=== PATIENT | male | born 1950 | race Caucasian/White ===

== ENCOUNTER 2019-05-16 11:38 | Outpatient (CLI) | payer MEDICARE, OTHER, SELFPAY ==
--- NOTE | 2019-05-16 11:52 | XRR_ITS ---
PROCEDURE INFORMATION: Exam: XR Chest, 2 Views Exam date and time: 05/16/2019 12:05 PM Age: 68 years old Clinical indication: Cough; Prior surgery; Surgery date: 6+ months; Surgery type: Cabg; Additional info: Cough/hx of asbestosis TECHNIQUE: Imaging protocol: XR of the chest Views: 2 views. COMPARISON: No relevant prior studies available. FINDINGS: Lungs: Emphysema Mild scarring left lung base inferiorly and medially Lungs are well aerated without a focal area of consolidation. Pleural space: Pleural calcifications left hemithorax Heart/Mediastinum: Unremarkable. No cardiomegaly. Bones/joints: prior sternotomy. XR/XR chest 2V* [id number] IMPRESSION: Lungs are well aerated without a focal area of consolidation.
== END 2019-05-16 11:39 | disposition home or self-care (01) ==
LOC: RAD 11:47
PROVIDERS: Family Provider Family Medicine; PCP Family Medicine; Visit Provider Family Medicine
DX: R05 Cough (principal); Z95.1 Presence of aortocoronary bypass graft
CPT/HCPCS: 71046

== ENCOUNTER 2019-10-25 13:08 | Observation (INO) | payer MEDICARE, OTHER, SELFPAY ==
[2019-10-25] VITALS (52 sets, daily range): BP systolic 105–135; BP diastolic 58–76; PULSE 53–135; RESP 10–20; TEMP 36.7–36.8; O2SAT 95–98; BMI 32.6
--- NOTE | 2019-10-25 14:11 | ED_ITS ---
HPI - Arrhythmia/Palpitations General: Chief Complaint: Arrhythmia/Palpitations Stated Complaint: high hr/svt symptoms Time Seen by Provider: 10/25/19 13:40 History of Present Illness: HPI narrative: Patient has a long history of SVT. He began to have symptoms of the rapid heartbeat that he gets with SVT, last night. MD complaint: rapid heart beat and palpitations Onset (ago): hour(s) Duration: constant Severity: severe Context: occurred during rest Arrhythmia history: SVT Associated symptoms: Reports no associated symptoms Course Vital Signs: Vital signs: Vital Signs Temperature 98.0 F 10/25/19 13:16 Pulse Rate 130 H 10/25/19 14:56 Respiratory Rate 16 10/25/19 14:56 Blood Pressure 105/76 10/25/19 14:56 Pulse Oximetry 97 10/25/19 14:56 MDM - Arrhythmia/Palpitations Lab Data: Labs: Lab Results 10/25/19 10/25/19 10/25/19 Range/Units 14:05 14:05 14:05 WBC 7.0 (4.0-10.0) 10^3/ uL RBC 4.85 (4.1-5.3) 10^6/u L Hgb 14.0 (11.7-16.6) g/dL Hct 42.3 (42.0-52.0) % MCV 87.2 (80-94) fL MCH 28.9 (28.0-34.0) pg MCHC 33.1 (30.0-36.0) g/dL RDW 13.2 (12.1-15.1) % Plt Count 203 (130-400) 10^3/c mm MPV 10.9 H (7.4-10.4) fL Neut % (Auto) 65.4 % Lymph % (Auto) 18.5 % [place] % (Auto) 8.5 % Eos % (Auto) 6.6 % Baso % (Auto) 0.9 % Neut # (Auto) 4.6 (1.8-7.7) 10^3/u L Lymph # (Auto) 1.3 (0.8-4.8) 10^3/u L [place] # (Auto) 0.6 (0.2-0.9) 10^3/u L Eos # (Auto) 0.5 (0.0-0.8) 10^3/u L Baso # (Auto) 0.1 (0.0-0.1) 10^3/u L Nucleated RBC % (a uto) 0 % Nucleated RBCs # 0.0 /100WBC PT 13.30 (10.5-13.3) SECO NDS INR 0.98 (0.8-1.2) Sodium 137 (136-145) mmol/L Potassium 4.2 (3.5-5.1) mmol/L Chloride 101 (98-107) mmol/L Carbon Dioxide 26 (22-29) mmol/L Anion Gap 14.2 (5-19) BUN 7 L (8-23) mg/dL Creatinine 0.5 L (0.7-1.2) mg/dL GFR Calculation 164.4 H (90-130) mL/min Glucose 170 H (65-115) mg/dL Calculated Osmolal ity 284 L (285-295) mOsm/k g Calcium 9.8 (8.5-10.5) mg/dL Total Bilirubin 0.9 (0.15-1.2) mg/dL AST 14 (0-40) U/L ALT 11 (0-41) U/L Alkaline Phosphata se 79 (40-130) IU/L Troponin T Baselin e (0-15) ng/L NT-Pro-B Natriuret Pep 437 H (0-125) pg/mL Total Protein 7.2 (6.6-8.7) g/dL Albumin 4.4 (3.5-5.2) g/dL Globulin 2.8 (1.3-4.6) g/dL TSH 1.91 (0.27-4.20) uIU/ mL 10/25/19 Range/Units 14:05 WBC (4.0-10.0) 10^3/ uL RBC (4.1-5.3) 10^6/u L Hgb (11.7-16.6) g/dL Hct (42.0-52.0) % MCV (80-94) fL MCH (28.0-34.0) pg MCHC (30.0-36.0) g/dL RDW (12.1-15.1) % Plt Count (130-400) 10^3/c mm MPV (7.4-10.4) fL Neut % (Auto) % Lymph % (Auto) % [place] % (Auto) % Eos % (Auto) % Baso % (Auto) % Neut # (Auto) (1.8-7.7) 10^3/u L Lymph # (Auto) (0.8-4.8) 10^3/u L [place] # (Auto) (0.2-0.9) 10^3/u L Eos # (Auto) (0.0-0.8) 10^3/u L Baso # (Auto) (0.0-0.1) 10^3/u L Nucleated RBC % (a uto) % Nucleated RBCs # /100WBC PT (10.5-13.3) SECO NDS INR (0.8-1.2) Sodium (136-145) mmol/L Potassium (3.5-5.1) mmol/L Chloride (98-107) mmol/L Carbon Dioxide (22-29) mmol/L Anion Gap (5-19) BUN (8-23) mg/dL Creatinine (0.7-1.2) mg/dL GFR Calculation (90-130) mL/min Glucose (65-115) mg/dL Calculated Osmolal ity (285-295) mOsm/k g Calcium (8.5-10.5) mg/dL Total Bilirubin (0.15-1.2) mg/dL AST (0-40) U/L ALT (0-41) U/L Alkaline Phosphata se (40-130) IU/L Troponin T Baselin e 23 H (0-15) ng/L NT-Pro-B Natriuret Pep (0-125) pg/mL Total Protein (6.6-8.7) g/dL Albumin (3.5-5.2) g/dL Globulin (1.3-4.6) g/dL TSH (0.27-4.20) uIU/ mL Discharge Plan Discharge Patient Disposition: Admitted As Inpatient Clinical Impression: New onset atrial flutter Condition: Stable Referrals: Scot Calvillo MD [Primary Care Provider] - Coding Level of Care Code ED 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
--- NOTE | 2019-10-25 14:25 | XRR_ITS ---
PROCEDURE INFORMATION: Exam: XR Chest, 1 View Exam date and time: 10/25/2019 2:41 PM Age: 69 years old Clinical indication: Other: New onset afib, svt symptoms; Prior surgery; Surgery date: 6+ months; Surgery type: Bypass; Patient HX: New onset afib, high hr TECHNIQUE: Imaging protocol: XR of the chest Views: 1 view. COMPARISON: CR XR chest 2V* [id number] 05/16/2019 12:01 PM FINDINGS: Lungs: Unremarkable. No consolidation. Pleural space: Unremarkable. No pleural effusion. No pneumothorax. Heart/Mediastinum: Unremarkable. No cardiomegaly. Diaphragm: There is calcification along the left hemidiaphragm. Bones/joints: There has been a sternotomy. XR/XR chest 1V portable [id number] IMPRESSION: There are no acute concerning abnormalities.
--- NOTE | 2019-10-25 14:26 | ECG_ITS ---
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 Measurements Intervals [place] Rate: 131 P: 25 IN: 152 QRS: 81 QRSD: 95 T: 263 QT: 290 QTc: 429 Interpretive Statements SINUS TACHYCARDIA WITH OCCASIONAL VENTRICULAR PREMATURE COMPLEXES ST DEVIATION AND MODERATE T-WAVE ABNORMALITY, CONSIDER ANTEROLATERAL ISCHEMIA ST DEVIATION AND MODERATE T-WAVE ABNORMALITY, CONSIDER INFERIOR ISCHEMIA No previous ECG available for comparison Electronically Signed On 10-25-2019 21:15:28 CDT by Kacey Stephens M.D. [email or web address] [email or web address] [email or web address] Apps ([email or web address])/store/[id number] f
[2019-10-25 14:37] LABS: Basophils # 0.1 10^3/uL (0.0-0.1); Basophils % 0.9 %; Eosinophils # 0.5 10^3/uL (0.0-0.8); Eosinophils % 6.6 %; Hematocrit 42.3 % (42.0-52.0); Lymphocytes # 1.3 10^3/uL (0.8-4.8); Lymphocytes % 18.5 %; Mean Corpuscular HGB Conc 33.1 g/dL (30.0-36.0); Mean Corpuscular Hemoglobin 28.9 pg (28.0-34.0); Mean Corpuscular Volume 87.2 fL (80-94); Mean Platelet Volume 10.9 fL (7.4-10.4); Monocytes # 0.6 10^3/uL (0.2-0.9); Monocytes % 8.5 %; Neutrophils # 4.6 10^3/uL (1.8-7.7); Neutrophils % 65.4 %; Nucleated Red Blood Cells % 0 %; Platelet Count 203 10^3/cmm (130-400); Red Blood Count 4.85 10^6/uL (4.1-5.3); Red Cell Distribution Width 13.2 % (12.1-15.1)
[2019-10-25 14:52] LABS: Troponin(5th) Baseline 23 ng/L (0-15)
[2019-10-25 14:59] LABS: Alanine Aminotransferase 11 U/L (0-41); Albumin Level 4.4 g/dL (3.5-5.2); Alkaline Phosphatase 79 IU/L (40-130); Anion Gap 14.2 (5-19); Aspartate Amino Transferase 14 U/L (0-40); Blood Urea Nitrogen 7 mg/dL (8-23); Calcium 9.8 mg/dL (8.5-10.5); Carbon Dioxide 26 mmol/L (22-29); Chloride 101 mmol/L (98-107); Globulin 2.8 g/dL (1.3-4.6); Glomerular Filtration Rate 164.4 mL/min (90-130); Glucose 170 mg/dL (65-115); NT Pro B Type Natriuretic Pept 437 pg/mL (0-125); Osmolality Calculated 284 mOsm/kg (285-295); Potassium 4.2 mmol/L (3.5-5.1); Sodium 137 mmol/L (136-145); Thyroid Stimulating Hormone 1.91 uIU/mL (0.27-4.20); Total Bilirubin 0.9 mg/dL (0.15-1.2); Total Protein 7.2 g/dL (6.6-8.7)
--- NOTE | 2019-10-25 15:10 | PC.NURSE ---
pt converted to NSR at 1508 with 20mg IVP diltiazem. ED provider notified. Verbal orders received to hold off on starting diltiazem gtt
[2019-10-25 15:23] LABS: INR 0.98 (0.8-1.2)
--- NOTE | 2019-10-25 16:26 | ECG_ITS ---
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 Measurements Intervals [place] Rate: 63 P: 50 IA: 170 QRS: 75 QRSD: 92 T: 218 QT: 423 QTc: 434 Interpretive Statements SINUS RHYTHM ST DEVIATION AND MODERATE T-WAVE ABNORMALITY, CONSIDER LATERAL ISCHEMIA [-0.1+ mV T WAVE IN I/aVL/V5/V6] ST DEVIATION AND MODERATE T-WAVE ABNORMALITY, CONSIDER INFERIOR ISCHEMIA [-0.1+ mV T WAVE IN II/aVF] Compared to ECG 10/25/2019 14:56:37 Sinus tachycardia no longer present Ventricular premature complex(es) no longer present T-wave abnormality still present Possible ischemia still present Electronically Signed On 10-25-2019 20:53:31 CDT by Kacey Stephens M.D. [id number]
[2019-10-25 16:46] LABS: Troponin 5 2HR 25.43 ng/L (0-15); Troponin 5 2HR Delta 2.43 ABS# (0-10)
--- NOTE | 2019-10-25 18:42 | PM.HP ---
Providers/Chief Complaint Primary Care Provider: Scot Calvillo MD Chief Complaint: high hr/svt symptoms History of Present Illness Rufus Hernández is a 69 year old male with past medical history of diabetes mellitus type 2, CABG x 2, hypertension, hypothyroidism who presented to the emergency department with concerns for tachycardia. The patient noted that on the evening of 10/24/2019 his heart rate was going very fast. He has had this problem intermittently and once he starts having to the ER, it tends to self resolve. This time it continued through the night and by the morning of 10/25/2019, he decided to go to the ER for further evaluation. In the ER he was found to have tachycardia with rates into the 180s with atrial flutter. He was given a dose of Cardizem IV and with this, his heart rate converted to a normal sinus rhythm with a rate in the 60s. The patient denies any active chest pains, shortness of breath, nausea, vomiting, diarrhea, constipation, dysuria. Medications/Allergies Home Medications Medication Instructions Recorded Confirmed Last Taken Type aspirin 81 mg PO DAILY 10/25/19 10/25/19 10/25/19 History atorvastatin 40 mg PO DAILY 10/25/19 10/25/19 10/25/19 History cyanocobalamin (vitamin B-12) 1,000 mcg PO Q14D 10/25/19 10/25/19 10/17/19 History [Vitamin B-12] furosemide 20 mg PO DAILY PRN 10/25/19 10/25/19 Unknown History insulin glargine [Lantus Solostar 15 unit SUBCUT DAILY 10/25/19 10/25/19 10/24/19 History U-100 Insulin] insulin regular human [Novolin R See Rx Instructions .ROUTE .COMPLEX 10/25/19 10/25/19 10/25/19 History Regular U-100 Insuln] ipratropium bromide [Atrovent HFA] 1 puff INHALATION QID PRN 10/25/19 10/25/19 Unknown History lisinopril 20 mg PO DAILY 10/25/19 10/25/19 10/25/19 History methimazole 2.5 mg PO DAILY 10/25/19 10/25/19 10/25/19 History metoprolol succinate [Toprol XL] 50 mg PO DAILY 10/25/19 10/25/1920 History nitroglycerin [Nitrostat] 0.4 mg SUBLINGUAL Q5M PRN 10/25/19 10/25/19 Unknown History omeprazole 20 mg PO DAILY 10/25/19 10/25/19 10/25/19 History Allergies Allergy/AdvReac Type Severity Reaction Status Date / Time No Known Allergies Allergy Unverified 10/25/19 15:05 PFSH Acute PFSH: Medical History Non-smoker Surgical History (Updated 10/25/19 @ 18:57 by Scot Calvillo MD) History of tonsillectomy S/P CABG x 2 Family History (Updated 10/25/19 @ 18:57 by Scot Calvillo MD) Father CAD (coronary artery disease) Social History (Updated 10/25/19 @ 18:58 by Scot Calvillo MD) Alcohol intake: current Alcohol intake frequency: few times a month Vitals/I&O/Wt Last Vital Signs Temp 98.0 F 10/25/19 13:16 Pulse 64 10/25/19 18:17 Resp 19 H 10/25/19 18:17 BP 135/69 10/25/19 18:17 Pulse Ox 97 10/25/19 18:17 Weight last 48 hrs Weight 241 lb Physical Exam Narrative: EXAM NARRATIVE: General: Alert and oriented x3 Eyes: PERRLA, EOMI Mouth: Mucous membranes moist without lesions Cardiac: Regular rate and rhythm without murmurs, mild bradycardia Lungs: Clear to auscultation bilaterally without wheezes, crackles or rhonchi Abdomen: Soft, nontender, no hepatosplenomegaly noted Extremities: Trace edema in the bilateral lower extremities Data : 10/25/19 14:05 10/25/19 14:05 A&P Additional A&P Information 1. New onset atrial flutter with RVR -the patient has new onset atrial flutter with RVR. He has had multiple episodes of tachycardia that were not previously discovered on EKG or event monitor. He is likely having paroxysmal atrial flutter. This did resolve with Cardizem IV. We will try changing the patient to Cardizem p.o. and plan to stop metoprolol. We will start with 120 mg extended release and increase if needed. We will have to watch the blood pressure to be sure it does not drop too much. We will plan to decrease the lisinopril to allow for this. The patient may need to follow-up with his sequins stringer, Dr. Harrington, in [place] as an outpatient. I talked with the patient regarding blood thinners and he does not want to start any at this time. We will get an echocardiogram and follow. 2. Coronary artery disease -stable at this time. Troponins are not showing signs of acute PA. 3. Diabetes mellitus type 2 -we will get an A1c and continue with long-acting insulin at 15 units/day. Sliding scale as well. 4. Hypertension -blood pressures little bit on the soft side. We will decrease lisinopril dose and switch over to Cardizem and follow. 5. Hypothyroidism/Graves' disease -the patient plans to have an ablation therapy done at the end of this month. We will backorder a T4 to see if hypothyroidism may be inducing his atrial flutter. 6. Prophylaxis -Lovenox Attestations Medical Necessity Statement*: The patient is currently here for observation and we will follow to see if his heart rate stays under control. If it does not, we may need to change his status. 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
--- NOTE | 2019-10-25 19:07 | PC.NURSE ---
Patient report received from KYREE Staples and care transferred to KYREE Benson
--- NOTE | 2019-10-25 19:34 | PC.NURSE ---
Tried to call report on patient but receiving nurse unable to take report at this time and will call back
--- NOTE | 2019-10-25 20:26 | ECG_ITS ---
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 Measurements Intervals [place] Rate: 55 P: 54 NE: 168 QRS: 72 QRSD: 97 T: 204 QT: 467 QTc: 448 Interpretive Statements SINUS BRADYCARDIA ST DEVIATION AND MODERATE T-WAVE ABNORMALITY, CONSIDER LATERAL ISCHEMIA [-0.1+ mV T WAVE IN I/aVL/V5/V6] ST DEVIATION AND MODERATE T-WAVE ABNORMALITY, CONSIDER INFERIOR ISCHEMIA [-0.1+ mV T WAVE IN II/aVF] Compared to ECG 10/25/2019 16:41:28 Sinus rhythm no longer present T-wave abnormality still present Possible ischemia still present Electronically Signed On 10-26-2019 7:27:26 CDT by Chuck Barth M.D. [id number]
[2019-10-25] MEDS: enoxaparin 40 mg/0.4 mL Syringe SUBCUT (20:34)
[2019-10-25] MEDS: atorvastatin 40 mg Tablet PO (20:34)
[2019-10-25 20:55] LABS: Troponin 5 6HR 27.62 ng/L (0-15); Troponin 5 6HR Delta 4.62 ng/L (0-12)
[2019-10-25 21:03] LABS: Free T4 Free Thyroxine 1.36 ng/dL (0.82-1.77)
[2019-10-26] VITALS (57 sets, daily range): BP systolic 100–142; BP diastolic 55–68; PULSE 52–63; RESP 10–22; TEMP 36.2–37; O2SAT 96–97
[2019-10-26 04:28] LABS: Basophils # 0.1 10^3/uL (0.0-0.1); Basophils % 0.8 %; Eosinophils # 0.6 10^3/uL (0.0-0.8); Eosinophils % 8.9 %; Hematocrit 39.3 % (42.0-52.0); Hemoglobin 12.9 g/dL (11.7-16.6); Lymphocytes % 32.4 %; Mean Corpuscular HGB Conc 32.8 g/dL (30.0-36.0); Mean Corpuscular Hemoglobin 29.7 pg (28.0-34.0); Mean Corpuscular Volume 90.6 fL (80-94); Mean Platelet Volume 11.1 fL (7.4-10.4); Monocytes # 0.6 10^3/uL (0.2-0.9); Monocytes % 9.6 %; Nucleated Red Blood Cells % 0 %; Platelet Count 181 10^3/cmm (130-400); Red Blood Count 4.34 10^6/uL (4.1-5.3); Red Cell Distribution Width 13.7 % (12.1-15.1); White Blood Count 6.2 10^3/uL (4.0-10.0)
[2019-10-26 04:50] LABS: Estmated Average Glucose 166; Hemoglobin A1C 7.4 % (4.0-6.0)
[2019-10-26 05:01] LABS: Alanine Aminotransferase 11 U/L (0-41); Albumin Level 3.8 g/dL (3.5-5.2); Alkaline Phosphatase 68 IU/L (40-130); Anion Gap 15.9 (5-19); Aspartate Amino Transferase 14 U/L (0-40); Blood Urea Nitrogen 8 mg/dL (8-23); Calcium 9.2 mg/dL (8.5-10.5); Carbon Dioxide 27 mmol/L (22-29); Chloride 101 mmol/L (98-107); Glomerular Filtration Rate 164.4 mL/min (90-130); Glucose 115 mg/dL (65-115); Magnesium 2.1 mg/dL (1.7-2.3); Osmolality Calculated 287 mOsm/kg (285-295); Phosphorus 3.5 mg/dL (2.5-4.5); Potassium 3.9 mmol/L (3.5-5.1); Sodium 140 mmol/L (136-145); Total Bilirubin 1.4 mg/dL (0.15-1.2); Total Protein 6.8 g/dL (6.6-8.7)
[2019-10-26 05:37] LABS: Chol HDL Ratio 4.03 mg/dL (1.0-5.00); Cholesterol 129 mg/dL (0-200); HDL Cholesterol 32 mg/dL (60-100); LDL Cholesterol Calculated 76 mg/dL (50-129); LDL HDL Ratio 2.38 RATIO (0.00-3.22); NT Pro B Type Natriuretic Pept 176 pg/mL (0-125); Triglycerides 104 mg/dL (0-150)
[2019-10-26] MEDS: aspirin 81 mg Chew Tablet PO (08:30)
[2019-10-26] MEDS: lisinopril 5 mg Tablet PO (08:30)
[2019-10-26] MEDS: pantoprazole DR 40 mg Tablet PO (08:30)
[2019-10-26] MEDS: methIMAzole 5 MG Tablet 2.5 MG PO (08:30)
[2019-10-26] MEDS: insulin glargine 100 units/1 mL 15 UNIT SUBCUT (09:18)
--- NOTE | 2019-10-26 11:23 | P.DS_ITS ---
Discharge Providers Date of Admission: 10/25/19 16:01 Date of Discharge: October 26, 2019 Attending Provider at Admission: Scot Calvillo MD Attending Provider at Discharge: Scot Calvillo MD Primary Care Provider: Scot Calvillo MD Diagnoses at Discharge Discharge Diagnosis (1) Diabetes mellitus: Status: Acute (2) Hyperthyroidism: Status: Acute (3) Hypertension: Status: Acute (4) Coronary artery disease: Status: Acute (5) New onset atrial flutter: Status: Acute Reason for Visit Reason for Visit: high hr/svt symptoms Hospital Course Hospital Course: The patient presented to the emergency department with concerns for tachycardia. The patient noted that on the evening of 10/24/2019 his heart rate was going very fast. He has had this problem intermittently and once he starts having to the ER, it tends to self resolve. This time it continued through the night and by the morning of 10/25/2019, he decided to go to the ER for further evaluation. In the ER he was found to have tachycardia with rates into the 180s with atrial flutter. He was given a dose of Cardizem IV and with this, his heart rate converted to a normal sinus rhythm with a rate in the 60s. The patient denied any active chest pains, shortness of breath, nausea, vomiting, diarrhea, constipation, dysuria. The patient felt that the metoprolol was not working well for him and wished to try to switch to Cardizem instead. I started him on Cardizem 120 mg extended release and he received 1 dose on the evening of 10/25/2019. The patient's pulse stayed in the 50s to 60s and he did not have any runs of tachycardia. The patient's blood pressure also gradually improved and has been in the 130s and 140s systolic at the time of discharge. The patient feels well and denies any chest pains. We will plan to continue with the Cardizem as an outpatient and stop the metoprolol for now. We will certainly need to watch as an outpatient to make sure that this dose does not need to be adjusted. The patient's blood pressure was on the upper limits of normal and he may need to have his lisinopril increased as an outpatient. He is to check his blood pressure at home and let me know if increasing. We will follow-up over the next week. The patient will also plan to follow-up with his valve fitter in [place], Dr. Falk. All questions were answered. The patient is in agreement with discharge home at this time. Physical Exam Narrative: EXAM NARRATIVE: General: Alert and oriented x3 Mouth: Mucous membranes moist without lesions Cardiac: Regular rate and rhythm without murmurs, mild bradycardia Lungs: Clear to auscultation bilaterally without wheezes, crackles or rhonchi Abdomen: Soft, nontender, no hepatosplenomegaly noted Extremities: Trace edema in the bilateral lower extremities Discharge Data Data Completed and Pending: Completed Studies During Hospitalization Category Date Time Status XR chest 1V jhoan ble [id number] Urgent Exams 10/25/19 14:25 Completed Pending at discharge Category Date Time Status Complete Blood Co unt w/Auto AM LABS Lab 10/27/19 04:00 Ordered Complete Blood Co unt w/Auto AM LABS Lab 10/28/19 04:00 Ordered CV carotid duplex BI* [id number] Urgent Ultrasound 10/26/19 19:02 Taken CV echo complete* [id number] Urgent Ultrasound 10/26/19 19:02 Taken Labs from last 24 hours 10/26/19 10/26/19 10/26/19 03:11 03:11 03:11 WBC RBC Hgb Hct MCV MCH MCHC RDW Plt Count MPV Neut % (Auto) Lymph % (Auto) [place] % (Auto) Eos % (Auto) Baso % (Auto) Neut # (Auto) Lymph # (Auto) [place] # (Auto) Eos # (Auto) Baso # (Auto) Nucleated RBC % (a uto) Nucleated RBCs # PT INR Sodium 140 Potassium 3.9 Chloride 101 Carbon Dioxide 27 Anion Gap 15.9 BUN 8 Creatinine 0.5 L GFR Calculation 164.4 H Glucose 115 Estimat Average Gl ucose 166 Hemoglobin A1c 7.4 H Calculated Osmolal ity 287 Calcium 9.2 Phosphorus 3.5 Magnesium 2.1 Total Bilirubin 1.4 H AST 14 ALT 11 Alkaline Phosphata se 68 Troponin I 6 Hour Troponin I Hi Sens Del Troponin T Baselin e Troponin T 120 Min [place] Troponin T NT-Pro-B Natriuret Pep 176 H Total Protein 6.8 Albumin 3.8 Globulin 3.0 Triglycerides 104 Cholesterol 129 LDL Cholesterol, C alc 76 HDL Cholesterol 32 L LDL/HDL Ratio 2.38 Cholesterol/HDL Ra laverne 4.03 TSH Free T4 07/07/1210/25/19 10/25/19 03:11 20:30 20:30 WBC 6.2 RBC 4.34 Hgb 12.9 Hct 39.3 L MCV 90.6 MCH 29.7 MCHC 32.8 RDW 13.7 Plt Count 181 MPV 11.1 H Neut % (Auto) 48.0 Lymph % (Auto) 32.4 [place] % (Auto) 9.6 Eos % (Auto) 8.9 Baso % (Auto) 0.8 Neut # (Auto) 3.0 Lymph # (Auto) 2.0 [place] # (Auto) 0.6 Eos # (Auto) 0.6 Baso # (Auto) 0.1 Nucleated RBC % (a uto) 0 Nucleated RBCs # 0.0 PT INR Sodium Potassium Chloride Carbon Dioxide Anion Gap BUN Creatinine GFR Calculation Glucose Estimat Average Gl ucose Hemoglobin A1c Calculated Osmolal ity Calcium Phosphorus Magnesium Total Bilirubin AST ALT Alkaline Phosphata se Troponin I 6 Hour 27.62 H Troponin I Hi Sens Del 4.62 Troponin T Baselin e Troponin T 120 Min [place] Troponin T NT-Pro-B Natriuret Pep Total Protein Albumin Globulin Triglycerides Cholesterol LDL Cholesterol, C alc HDL Cholesterol LDL/HDL Ratio Cholesterol/HDL Ra laverne TSH Free T4 1.36 10/25/19 10/25/19 10/25/19 16:12 14:05 14:05 WBC RBC Hgb Hct MCV MCH MCHC RDW Plt Count MPV Neut % (Auto) Lymph % (Auto) [place] % (Auto) Eos % (Auto) Baso % (Auto) Neut # (Auto) Lymph # (Auto) [place] # (Auto) Eos # (Auto) Baso # (Auto) Nucleated RBC % (a uto) Nucleated RBCs # PT INR Sodium 137 Potassium 4.2 Chloride 101 Carbon Dioxide 26 Anion Gap 14.2 BUN 7 L Creatinine 0.5 L GFR Calculation 164.4 H Glucose 170 H Estimat Average Gl ucose Hemoglobin A1c Calculated Osmolal ity 284 L Calcium 9.8 Phosphorus Magnesium Total Bilirubin 0.9 AST 14 ALT 11 Alkaline Phosphata se 79 Troponin I 6 Hour Troponin I Hi Sens Del Troponin T Baselin e 23 H Troponin T 120 Min [place] 25.43 H Delta Troponin T 2.43 NT-Pro-B Natriuret Pep 437 H Total Protein 7.2 Albumin 4.4 Globulin 2.8 Triglycerides Cholesterol LDL Cholesterol, C alc HDL Cholesterol LDL/HDL Ratio Cholesterol/HDL Ra laverne TSH 1.91 Free T4 10/25/19 10/25/19 14:05 14:05 WBC 7.0 RBC 4.85 Hgb 14.0 Hct 42.3 MCV 87.2 MCH 28.9 MCHC 33.1 RDW 13.2 Plt Count 203 MPV 10.9 H Neut % (Auto) 65.4 Lymph % (Auto) 18.5 [place] % (Auto) 8.5 Eos % (Auto) 6.6 Baso % (Auto) 0.9 Neut # (Auto) 4.6 Lymph # (Auto) 1.3 [place] # (Auto) 0.6 Eos # (Auto) 0.5 Baso # (Auto) 0.1 Nucleated RBC % (a uto) 0 Nucleated RBCs # 0.0 PT 13.30 INR 0.98 Sodium Potassium Chloride Carbon Dioxide Anion Gap BUN Creatinine GFR Calculation Glucose Estimat Average Gl ucose Hemoglobin A1c Calculated Osmolal ity Calcium Phosphorus Magnesium Total Bilirubin AST ALT Alkaline Phosphata se Troponin I 6 Hour Troponin I Hi Sens Del Troponin T Baselin e Troponin T 120 Min [place] Troponin T NT-Pro-B Natriuret Pep Total Protein Albumin Globulin Triglycerides Cholesterol LDL Cholesterol, C alc HDL Cholesterol LDL/HDL Ratio Cholesterol/HDL Ra laverne TSH Free T4 Vitals: Last Vital Signs Temp 98.1 F 10/26/19 08:00 Pulse 63 10/26/19 08:00 Resp 15 10/26/19 08:00 BP 142/68 10/26/19 08:00 Pulse Ox 96 10/26/19 08:00 Discharge Plan Discharge Patient Disposition: Home, Self-Care Condition: Stable Prescriptions: New diltiazem HCl 120 mg capsule,extended release 24 hr 120 mg PO DAILY Qty: 30 RF: 0 Continued atorvastatin 40 mg tablet 40 mg PO DAILY RF: 0 lisinopril 20 mg Tablet 20 mg PO DAILY RF: 0 Vitamin B-12 1,000 mcg Tablet 1,000 mcg PO Q14D RF: 0 Novolin R Regular U-100 Insuln 100 unit/mL solution See Rx Instructions .ROUTE .COMPLEX RF: 0 Nitrostat 0.4 mg Tablet, Sublingual 0.4 mg SUBLINGUAL Q5M PRN (Reason: Chest Pain) RF: 0 methimazole 5 mg tablet 2.5 mg PO DAILY RF: 0 omeprazole 20 mg capsule,delayed release(DR/EC) 20 mg PO DAILY RF: 0 aspirin 81 mg Tablet,Chewable 81 mg PO DAILY RF: 0 furosemide 20 mg tablet 20 mg PO DAILY PRN (Reason: swelling) RF: 0 Atrovent HFA 17 mcg/actuation Hfa Aerosol Inhaler 1 puff INHALATION QID PRN (Reason: Shortness Of Breath) RF: 0 Lantus Solostar U-100 Insulin 100 unit/mL (3 mL) insulin pen 15 unit SUBCUT DAILY RF: 0 Discontinued Toprol XL 50 mg tablet extended release 24 hr 50 mg PO DAILY RF: 0 Discharge Orders: Discharge Order (Routine); Ordered 10/26/19 Ordered By: Scot Calvillo Referrals: Scot Calvillo MD [Primary Care Provider] - 4-7 days (Please call [facility] for an appointment. Call [phone] for an appointment.) Discharge Diet: Cardiac and Diabetic Discharge Activity: Limit activity as instructed Activity Restrictions/Additional Instructions: Keep her overall activity level low for the next few days, then gradually increase. Discharge Attestations Time Spent in Discharge Care*: greater than 30 min Quality Metrics Clinical Quality Measures During this hospital stay, did patient experience: None Coding Level of Care Code Acute Army Manager for g Fwd Diagnoses Diabetes mellitus E11.9 Hyperthyroidism E05.90 Hypertension I10 Coronary artery disease I25.10 New onset atrial flutter I48.92
[2019-10-26 12:54] LABS: Glucose Point of Care 153 mg/dL (70-110)
--- NOTE | 2019-10-26 13:28 | PC.NURSE ---
DISCHARGE INSTRUCTIONS REVIEWED WITH PATIENT; CALLED PRESCRIPTION INTO [facility] [place] IT WAS TRANSMITTED TO [facility] (EVEN THOUGH IT WASN'T THE PREFERRED PHARMACY OR MARKED PREFERRED PHARMACY); MEDICATION LEAFLET GIVEN TO PATIENT ON PRESCRIPTION CALLED IN; IV REMOVED; PT DRESSED AND WALK OUT ON HIS ACCORD;
--- NOTE | 2019-10-26 19:02 | USCV_ITS ---
Rufus Hernández Age: 69 Gender: M : 1950 Exam Date: 10/26/2019 06:19 Ordering Phys: Scot Calvillo MD Technologist: Alex Gandhi Exam Location: [facility] [place] Indication: CVA BP: 111 / 58 HR: 59 Rhythm: Sinus Technical Quality: Adequate MEASUREMENTS (Male / Female) Normal Values 2D ECHO LV Diastolic Diameter PLAX 3.2 cm 4.2 - 5.9 / 3.9 - 5.3 cm LV Systolic Diameter PLAX 2.0 cm IVS Diastolic Thickness 1.0 cm 0.6 - 1.0 / 0.6 - 0.9 cm IVS Systolic Thickness 1.3 cm LVPW Diastolic Thickness 1.2 cm 0.6 - 1.0 / 0.6 - 0.9 cm LVPW Systolic Thickness 1.5 cm LVOT Diameter 2.0 cm LV Ejection Fraction 2D Teich 67.5 % LV Ejection Fraction MOD 2C 66.4 % LV Ejection Fraction 2C AL 66.5 % LA Diameter 4.4 cm LA Width 4.1 cm LA Height 5.2 cm RA Width 4.3 cm RA Height 4.5 cm M-MODE LV Diastolic Diameter MM 5.7 cm 4.2 - 5.9 / 3.9 - 5.3 cm LV Systolic Diameter MM 3.6 cm LV Ejection Fraction MM Teich 65.7 % IVS Diastolic Thickness MM 0.9 cm 0.6 - 1.0 / 0.6 - 0.9 cm IVS Systolic Thickness MM 1.4 cm LVPW Diastolic Thickness MM 1.1 cm 0.6 - 1.0 / 0.6 - 0.9 cm LVPW Systolic Thickness MM 1.9 cm RV Diastolic Diameter MM 1.6 cm Aortic Annulus Diameter 3.7 cm LA Ao Ratio MM 1.2 MV E Point Septal Separation 1.6 cm DOPPLER AV Peak Velocity 126.0 cm/s LVOT Peak Velocity 99.0 cm/s AV Area Cont Eq vti 2.9 cm squared AV Area Cont Eq pk 2.5 cm squared MV Area PHT 5.0 cm squared Mitral E to A Ratio 1.2 MV E' Velocity 7.0 cm/s Mitral E to MV E' Ratio 13.4 Mitral E to LV E' Lateral Ratio 12.2 Mitral E to LV E' Septal Ratio 15.1 TR Peak Velocity 153.0 cm/s TR Peak Gradient 9.4 mmHg Right Atrial Pressure 5.0 mmHg Pulmonary Artery Systolic Pressu 14.4 mmHg FINDINGS Left Ventricle Possibly normal LV size ejection fraction around 55%. The basal septum appears to be somewhat hypokinetic. Segmental wall motion analysis difficult because of the poor ultrasonic window.mild left ventricular hypertrophy. Grade II/IV diastolic dysfunction, moderately elevated filling pressures. Right Ventricle Possibly of normal size. Could not be visualized well Right Atrium Possibly of normal size. Could not visualized well. Left Atrium Mildly dilated Mitral Valve Thickened mitral valve. Aortic Valve Thickened aortic valve. Tricuspid Valve Could not be visualized well Pulmonic Valve Could not be visualized well Pericardium No pericardial effusion. Aorta Normal aortic annulus size. CONCLUSIONS Possibly normal LV size ejection fraction around 55%. The basal septum appears to be somewhat hypokinetic. Segmental wall motion analysis difficult because of the poor ultrasonic window. Mild left ventricular hypertrophy. Grade II/IV diastolic dysfunction, moderately elevated filling pressures. Mildly dilated Thickened aortic and mitral valves. No significant stenotic or regurgitant lesions. Because of the poor Doppler signals, this could be overlooked There is no pericardial effusion. No previous study is available for comparison. Dr Jolene Cedillo MD [facility] (Electronically Signed) Final Date: 26 October 2019 11:57 S
--- NOTE | 2019-10-26 19:02 | USCV_ITS ---
Rufus Hernández Age: 69 Gender: M : 1950 Exam Date: 10/26/2019 06:40 Ordering Phys: Scot Calvillo MD Technologist: Alex Gandhi Exam Location: [facility] [place] Indication: CVA Risk Factors: Previous Vascular Surgery: Right Brachial BP: / Left Brachial BP: / Right Left Velocity (cm/s) Spectral Plaque Velocity (cm/s) Spectral Plaque Syst/Diast Broadening Syst/Diast Broadening 68.40/ 17.60 Prox CCA 113.10/ 17.10 57.50/ 9.30 Mid CCA 93.30 / 14.50 52.80/ 17.10 Distal CCA 97.30 / 15.80 106.80/12.80 Hetro Prox ICA 137.85/ 33.00 Hetro 79.50/ 17.10 Hetro Mid ICA 122.20/ 34.70 Hetro 90.60/ 18.80 Hetro Distal ICA 149.45/ 33.85 Homo 77.70 ECA 173.40 1.56 ICA/CCA 1.46 Antegrade Vertebral Antegrade 55.50/ 11.10 cm/s 62.80/ 14.30 cm/s Bi Subclavian Tri 59.80 115.4 0 FINDINGS Moderate to heavy heterogeneous plaques at the left bifurcation and proximal internal carotid artery Mild to moderate diffuse plaques at the right bifurcation and internal carotid artery. Intimal thickening in the common carotid arteries bilaterally. Antegrade flow in the vertebral arteries bilaterally. CONCLUSIONS Moderate to heavy heterogeneous plaques at the left bifurcation and proximal internal carotid artery with velocity elevation consistent with 50-79% stenosis. Mild to moderate diffuse plaques at the right bifurcation and internal carotid artery with velocity elevation consistent with 16-49% stenosis. No similar previous studies are available for comparison Dr Jolene Cedillo MD [facility] (Electronically Signed) Final Date: 26 October 2019 12:02 S
== END 2019-10-26 13:20 | disposition home or self-care (01) ==
LOC: ER 15:47 → ICU 21:51
PROVIDERS: Admitting Provider Family Medicine; Emergency Provider Family Medicine; PCP Family Medicine; Visit Provider Family Medicine
DX: I65.23 Occlusion and stenosis of bilateral carotid arteries (principal); I48.92 Unspecified atrial flutter; E11.9 Type 2 diabetes mellitus without complications; E03.9 Hypothyroidism, unspecified; I10 Essential (primary) hypertension; I25.10 Atherosclerotic heart disease of native coronary artery without angina pectoris; Z79.4 Long term (current) use of insulin; Z79.82 Long term (current) use of aspirin; Z95.1 Presence of aortocoronary bypass graft
CPT/HCPCS: 12345; 36415; 36416; 71045; 80053; 80061; 82962; 83036; 83735; 83880; 84100; 84439; 84443; 84484; 85025; 85610; 93005; 93306; 93880; 96372; 99283; G0378; J1650; J1815; J3490

== ENCOUNTER 2020-04-21 10:23 | Outpatient (CLI) | payer MEDICARE, OTHER, SELFPAY ==
--- NOTE | 2020-04-21 10:33 | XRR_ITS ---
PROCEDURE INFORMATION: Exam: XR Lumbosacral Spine, 2 or 3 Views Exam date and time: 04/21/2020 11:25 AM Age: 69 years old Clinical indication: Patient HX: C/O low back pain x 4 days TECHNIQUE: Imaging protocol: XR of the lumbosacral spine, 2 or 3 views. COMPARISON: No relevant prior studies available. FINDINGS: Bones/joints: Mild degenerative disease is present predominantly at L5-S1 level with disc space narrowing and sclerosis. No fracture or other acute abnormalities are seen. There is no malalignment. Soft tissues: Unremarkable. Other findings: Incidentally noted is diaphragmatic calcification. XR/XR lumbar spine 2-3V* [id number] IMPRESSION: Mild DJD predominantly at L5-S1.
--- NOTE | 2020-04-21 10:33 | USCV_ITS ---
Rufus Hernández Age: 69 Gender: M : 1950 Exam Date: 04/21/2020 10:46 Ordering Phys: Scot Calvillo MD Technologist: Lori Clancy Exam Location: [facility] [place] Indication: INTERMITTENT CLAUDICATION Risk Factors: Previous Vascular Surgery: RIGHT LEFT BP: 146.0 / 68.00 BP: 133.0/ 66.00 0 0 Waveform Velocity (cm/s) Velocity (cm/s) Waveform Biphasic 108.5 Iliac Prox Biphasic 85.0 Iliac Mid Biphasic 120.9 Iliac Distal Biphasic 109.1 MISSILE AND MISSILE CHECKOUT TECHNICIAN Biphasic 85.4 SFA Prox Biphasic 96.0 SFA Mid Biphasic 76.9 SFA Dist Biphasic 59.8 POP Biphasic 94.1 ESTHETICIAN/OWNER Biphasic 22.0 DPA 1.2 EVA FINDINGS RT ESTHETICIAN/OWNER 176 RT DPA 139 Normal resting EVA on the right side, 1.2. Normal arterial Doppler flow velocities Slightly abnormal arterial Doppler waveforms CONCLUSIONS Features of arterial sclerosis with no significant arterial obstruction, based on the above findings. Dr Jolene Cedillo MD [facility] (Electronically Signed) Final Date: 22 April 2020 09:31 S
== END 2020-04-21 10:24 | disposition home or self-care (01) ==
PROVIDERS: PCP Family Medicine; Visit Provider Family Medicine
DX: I73.9 Peripheral vascular disease, unspecified (principal); M54.5 Low back pain; M51.37 Other intervertebral disc degeneration, lumbosacral region; M48.07 Spinal stenosis, lumbosacral region
CPT/HCPCS: 72100; 93926

== ENCOUNTER 2021-01-18 22:56 | Emergency (ER) | payer MEDICARE, OTHER, SELFPAY ==
--- NOTE | 2021-01-18 22:59 | XRR_ITS ---
PROCEDURE INFORMATION: Exam: XR Chest Exam date and time: 01/18/2021 10:59 PM Age: 70 years old Clinical indication: Shortness of breath; Prior surgery; Surgery date: 6+ months; Surgery type: Cabg; Patient HX: SOB x 3-4 days w covid exposure; Additional info: Cough, covid exposure TECHNIQUE: Imaging protocol: XR of the chest. Views: 1 view. COMPARISON: CR XR chest 1V portable [id number] 10/25/2019 2:48 PM FINDINGS: Lungs: Right mid lung and left lower lobe airspace opacities may reflect an infectious process, CT could better characterize these, especially the right lobe airspace opacities which has somewhat of a more focal rounded masslike appearance. Pleural spaces: Unremarkable. No pleural effusion. No pneumothorax. Heart/Mediastinum: Unremarkable. No cardiomegaly. Bones/joints: Sternotomy wires. XR/XR chest 1V portable [id number] IMPRESSION: Right mid lung and left lower lobe airspace opacities may reflect an infectious process, CT could better characterize these, especially the right lobe airspace opacities which has somewhat of a more focal rounded masslike appearance.
[2021-01-18 23:04] VITALS: BP 214/78; PULSE 86; RESP 18; TEMP 37.5; O2SAT 96; BMI 35.9
--- NOTE | 2021-01-18 23:07 | ED_ITS ---
HPI - Nausea/Vomiting/Diarrhea General: Chief complaint: COVID symptoms Stated complaint: covid Time Seen by Provider: 01/18/21 22:59 History of Present Illness: HPI Narrative: Patient has been ill for 4 days. Patient reported some mild shortness of breath 2 or 3 days ago but his main complaint today of nausea and vomiting and concerns for dehydration. Patient has a history of diabetes, hypothyroidism, hypertension, and coronary artery disease. Patient spouse is hospitalized at this time with COVID-19. Patient is alert oriented. Patient responds appropriately to questioning. Patient appears mildly unwell but not toxic. Associated nausea: Yes Associated symtoms: Reports nausea Review of Systems General: Reports: 10 or more systems reviewed and unremarkable except in HPI and below GI: Reports: nausea and vomiting PFSH ED PFSH: Medical History Non-smoker Surgical History (Updated 10/25/19 @ 18:57 by Scot Calvillo MD) History of tonsillectomy S/P CABG x 2 Family History (Updated 10/25/19 @ 18:57 by Scot Calvillo MD) Father CAD (coronary artery disease) Social History (Updated 10/25/19 @ 18:58 by Scot Calvillo MD) Alcohol intake: current Alcohol intake frequency: few times a month Physical Exam Const: COMMON NORMALS: no acute distress and patient oriented x3 GENERAL APPEARANCE: cooperative HENMT: COMMON NORMALS: normocephalic and Normal external nose present HEAD & SCALP: normal to inspection and normocephalic NOSE: Normal external nose present MOUTH: Normal oral and palatal mucosa present Eye: GENERAL EYE: appearance normal, both eyes and all related structures Neck/C-Spine: COMMON NORMALS: full ROM Lymph: LYMPHATIC: no lymphadenopathy noted Chest: COMMONS NORMALS: normal inspection of the chest Resp: COMMON NORMALS: normal respiratory effort EFFORT & INSPECTION: Yes able to speak in complete sentences Cardio: COMMON NORMALS: regular rate and regular rhythm RATE: regular rate RHYTHM: regular rhythm GI: COMMON NORMALS: non-tender : COMMON NORMALS: Yes no CVA tenderness BLADDER/KIDNEY EXAM: Yes no CVA tenderness Back/Pelvis: COMMON NORMALS: no CVA tenderness Extremity: COMMON NORMALS: normal to inspection Neuro: COMMON NORMALS: patient oriented x3 and moves all extremities Psych: COMMON NORMALS: mental status grossly normal and cooperative Skin: COMMON NORMALS: no rashes or lesions noted GENERAL SKIN EXAM: no rashes or lesions noted Course ED course: 2350, reviewed labs and x-rays with patient. We discussed thoroughly the use of monoclonal antibody therapy and patient agreed to treatment plan. Patient was given Zofran and 1 L of IV fluid with improvement of symptoms of nausea and malaise. Order for pharmacy consult for monoclonal antibodies was placed we plan to infuse it and then patient will be discharged to home. Vital Signs: Vital signs: Vital Signs Temperature 99.5 F 01/18/21 23:04 Pulse Rate 86 01/18/21 23:04 Respiratory Rate 18 01/18/21 23:04 Blood Pressure 214/78 01/18/21 23:04 Pulse Oximetry 93 01/18/21 23:18 MDM - Nausea/Vomiting/Diarrhea MDM Narrative: Medical decision making narrative: Patient came in tonight for concerns of COVID-19. Patient has had significant GI symptoms with his nausea and vomiting and some diarrhea. Patient did report some mild shortness of breath 2 days ago but it has improved. On exam patient appears mildly unwell but not toxic. Vital signs are normal except for elevated blood pressure. Skin was warm and dry. Differential diagnosis includes but not limited to pneumonia, gastroenteritis, COVID-19, dehydration, diabetic acidosis. Laboratory values noted some mild leukopenia. Sodium was 133 and glucose was 123. Liver enzymes were unremarkable. CRP was 7. COVID-19 test was positive. Chest x-ray noted mild patchy pneumonia. Discussed patient with treatment with monoclonal antibodies and agreed to treatment plan. We discussed the risk of anaphylaxis and noting that patient may still have to be hospitalized and may still become further ill. Patient reported understanding at agreed to treatment plan with monoclonal antibodies. Patient was also given 1 L of IV fluids and Zofran with improvement of overall symptoms. Patient was discharged to home after infusion. Lab Data: Labs: Lab Results 01/18/21 01/18/21 01/18/21 23:19 23:19 23:19 WBC 3.6 10^3/uL L 10^ 3/uL (4.0-10.0) RBC 4.70 10^6/uL 10^6 /uL (4.1-5.3) Hgb 14.4 g/dL g/dL (11.7-16.6) Hct 41.8 % L % (42.0-52.0) MCV 88.9 fl fl (80-94) MCH 30.6 pg pg (28.0-34.0) MCHC 34.4 g/dL g/dL (30.0-36.0) RDW 12.6 % % (12.1-15.1) Plt Count 127 10^3/cmm L 10 ^3/cmm (130-400) MPV 10.3 fL fL (7.4-10.4) Neut % (Auto) 52.4 % % Lymph % (Auto) 32.2 % % [place] % (Auto) 12.9 % % Eos % (Auto) 1.9 % % Baso % (Auto) 0.3 % % Neut # (Auto) 1.90 10^3/uL 10^3 /uL (1.8-7.7) Lymph # (Auto) 1.2 10^3/uL 10^3/ uL (0.8-4.8) [place] # (Auto) 0.5 10^3/uL 10^3/ uL (0.2-0.9) Eos # (Auto) 0.1 10^3/uL 10^3/ uL (0.0-0.8) Baso # (Auto) 0.0 10^3/uL 10^3/ uL (0.0-0.1) Nucleated RBC % (a uto) 0 % % Nucleated RBCs # 0.0 /100WBC /100W BC Sodium 133 mmol/L L mmol /L (136-145) Potassium 3.5 mmol/L mmol/L (3.5-5.1) Chloride 96 mmol/L L mmol/ L (98-107) Carbon Dioxide 25 mmol/L mmol/L (22-29) Anion Gap 15.5 (5-19) BUN 10 mg/dL mg/dL (8-23) Creatinine 0.6 mg/dL L mg/dL (0.7-1.2) GFR Calculation Not Reportable Glucose 123 mg/dL H mg/dL (65-115) Calculated Osmolal ity 276 mOsm/kg L mOs m/kg (285-295) Lactic Acid Calcium 8.8 mg/dL mg/dL (8.5-10.5) Total Bilirubin 0.6 mg/dL mg/dL (0.15-1.2) AST 29 U/L U/L (0-40) ALT 22 U/L U/L (0-41) Alkaline Phosphata se 74 IU/L IU/L (40-130) Creatine Kinase 170 U/L U/L (39-308) Troponin T Gen 5 n g/L 10 ng/L ng/L (0-15) C-Reactive Protein 5.7 mg/L H mg/L (0.0-4.9) Total Protein 6.4 g/dL L g/dL (6.6-8.7) Albumin 4.0 g/dL g/dL (3.5-5.2) Globulin 2.4 g/dL g/dL (1.3-4.6) SARS-CoV-2 Ag (Rap id) 01/18/21 01/18/21 23:19 23:19 WBC RBC Hgb Hct MCV MCH MCHC RDW Plt Count MPV Neut % (Auto) Lymph % (Auto) [place] % (Auto) Eos % (Auto) Baso % (Auto) Neut # (Auto) Lymph # (Auto) [place] # (Auto) Eos # (Auto) Baso # (Auto) Nucleated RBC % (a uto) Nucleated RBCs # Sodium Potassium Chloride Carbon Dioxide Anion Gap BUN Creatinine GFR Calculation Glucose Calculated Osmolal ity Lactic Acid 2.0 mmol/L mmol/L (0.5-2.2) Calcium Total Bilirubin AST ALT Alkaline Phosphata se Creatine Kinase Troponin T Gen 5 n g/L C-Reactive Protein Total Protein Albumin Globulin SARS-CoV-2 Ag (Rap id) Positive H (Negative) Discharge Plan Discharge Patient Disposition: Home Clinical Impression: COVID-19 Condition: Stable Prescriptions: New ondansetron HCl 4 mg tablet 4 mg PO Q8H PRN (Reason: nausea and vomiting) Qty: 10 RF: 0 No Action atorvastatin 40 mg tablet 40 mg PO DAILY RF: 0 lisinopril 20 mg Tablet 20 mg PO DAILY RF: 0 Vitamin B-12 1,000 mcg Tablet 1,000 mcg PO Q14D RF: 0 Novolin R Regular U-100 Insuln 100 unit/mL solution See Rx Instructions .ROUTE .COMPLEX RF: 0 Nitrostat 0.4 mg Tablet, Sublingual 0.4 mg SUBLINGUAL Q5M PRN (Reason: Chest Pain) RF: 0 methimazole 5 mg tablet 2.5 mg PO DAILY RF: 0 omeprazole 20 mg capsule,delayed release(DR/EC) 20 mg PO DAILY RF: 0 aspirin 81 mg Tablet,Chewable 81 mg PO DAILY RF: 0 furosemide 20 mg tablet 20 mg PO DAILY PRN (Reason: swelling) RF: 0 Atrovent HFA 17 mcg/actuation Hfa Aerosol Inhaler 1 puff INHALATION QID PRN (Reason: Shortness Of Breath) RF: 0 Lantus Solostar U-100 Insulin 100 unit/mL (3 mL) insulin pen 15 unit SUBCUT DAILY RF: 0 diltiazem HCl 120 mg capsule,extended release 24 hr 120 mg PO DAILY Qty: 30 RF: 0 Discharge Orders: Discharge ED (Routine); Ordered 01/19/21 Ordered By: Qasim Perry Referrals: Scot Calvillo MD [Primary Care Provider] - Discharge Diet: Usual diet Discharge Activity: Increase activity as tolerated Patient Instructions: Viral Syndrome (ED), Opioid Safety Activity Restrictions/Additional Instructions: Home and rest. Drink plenty of fluids. Continue with routine care. Use ondansetron as needed for nausea. Follow-up with primary care for further instruction. Return to the ER for new concerns. 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
[2021-01-18 23:18] VITALS: O2SAT 93
[2021-01-18] MEDS: ondansetron 2 mg/ML SDV 2 mL 4 MG IVP (23:19)
[2021-01-18] MEDS: sodium chloride 0.9% 1,000 ML 999 ML IV (23:19)
[2021-01-18 23:33] LABS: Basophils % 0.3 %; Eosinophils # 0.1 10^3/uL (0.0-0.8); Eosinophils % 1.9 %; Hematocrit 41.8 % (42.0-52.0); Hemoglobin 14.4 g/dL (11.7-16.6); Lymphocytes # 1.2 10^3/uL (0.8-4.8); Lymphocytes % 32.2 %; Mean Corpuscular HGB Conc 34.4 g/dL (30.0-36.0); Mean Corpuscular Hemoglobin 30.6 pg (28.0-34.0); Mean Corpuscular Volume 88.9 fl (80-94); Mean Platelet Volume 10.3 fL (7.4-10.4); Monocytes # 0.5 10^3/uL (0.2-0.9); Monocytes % 12.9 %; Neutrophils % 52.4 %; Nucleated Red Blood Cells % 0 %; Platelet Count 127 10^3/cmm (130-400); Red Cell Distribution Width 12.6 % (12.1-15.1); White Blood Count 3.6 10^3/uL (4.0-10.0)
[2021-01-18 23:40] LABS: Troponin T (5th) Once 10 ng/L (0-15)
[2021-01-18 23:43] LABS: Alanine Aminotransferase 22 U/L (0-41); Alkaline Phosphatase 74 IU/L (40-130); Anion Gap 15.5 (5-19); Aspartate Amino Transferase 29 U/L (0-40); Blood Urea Nitrogen 10 mg/dL (8-23); C Reactive Protein 5.7 mg/L (0.0-4.9); Calcium 8.8 mg/dL (8.5-10.5); Carbon Dioxide 25 mmol/L (22-29); Chloride 96 mmol/L (98-107); Creatine Phosphokinase 170 U/L (39-308); Globulin 2.4 g/dL (1.3-4.6); Glucose 123 mg/dL (65-115); Osmolality Calculated 276 mOsm/kg (285-295); Potassium 3.5 mmol/L (3.5-5.1); Sodium 133 mmol/L (136-145); Total Bilirubin 0.6 mg/dL (0.15-1.2); Total Protein 6.4 g/dL (6.6-8.7)
[2021-01-18 23:47] LABS: SARS Covid-2 Antigen Positive (Negative)
[2021-01-19 01:32] VITALS: BP 165/77; PULSE 83; RESP 19; O2SAT 95
[2021-01-19 03:32] VITALS: BP 167/79; PULSE 92; RESP 16; O2SAT 96
--- NOTE | 2021-01-26 18:44 | PC.SOCIAL ---
10-4, 6104 antibody infusion follow up call: not a working number, unable to reach patient.
== END 2021-01-19 03:34 | disposition home or self-care (01) ==
PROVIDERS: Emergency Provider Nurse Practitioner Family; PCP Family Medicine
DX: U07.1 COVID-19 (principal); Z79.4 Long term (current) use of insulin; Z79.82 Long term (current) use of aspirin; Z95.1 Presence of aortocoronary bypass graft
CPT/HCPCS: 71045; 80053; 82550; 83605; 84484; 85025; 86140; 87040; 87426; 96365; 96375; 99284; J2405; J7030

== ENCOUNTER → 2021-12-09 11:24 | Outpatient (BNVA) | payer MEDICARE, OTHER, SELFPAY | PROVIDERS: PCP Family Medicine; Visit Provider Family Medicine | DX: Z51.81 Encounter for therapeutic drug level monitoring (principal); E11.9 Type 2 diabetes mellitus without complications; Z12.5 Encounter for screening for malignant neoplasm of prostate; E03.9 Hypothyroidism, unspecified; Z13.220 Encounter for screening for lipoid disorders; R25.2 Cramp and spasm; R97.20 Elevated prostate specific antigen [PSA]; R49.9 Unspecified voice and resonance disorder; I10 Essential (primary) hypertension; E05.90 Thyrotoxicosis, unspecified without thyrotoxic crisis or storm | CPT/HCPCS: 80053; 80061; 83036; 83735; 84153; 84439; 84443; 85025 ==

== ENCOUNTER → 2021-12-22 09:29 | Outpatient (BNVA) | payer MEDICARE, OTHER, SELFPAY | PROVIDERS: PCP Family Medicine; Visit Provider Otolaryngology | DX: Z71.1 Person with feared health complaint in whom no diagnosis is made (principal); E11.9 Type 2 diabetes mellitus without complications; K21.9 Gastro-esophageal reflux disease without esophagitis; K14.8 Other diseases of tongue; Z92.3 Personal history of irradiation; Z79.4 Long term (current) use of insulin | CPT/HCPCS: 99204; 99205 ==

== ENCOUNTER 2023-05-23 13:58 | Outpatient (CLI) | payer MEDICARE, OTHER, SELFPAY ==
--- NOTE | 2023-05-23 14:05 | XRR_ITS ---
PROCEDURE INFORMATION: Exam: XR Chest Exam date and time: 05/23/2023 2:08 PM Age: 72 years old Clinical indication: Cough and wheezing; Prior surgery; Surgery date: 6+ months; Surgery type: Cabg TECHNIQUE: Imaging protocol: Radiologic exam of the chest. Views: 2 views. COMPARISON: CR XR chest 1V portable [id number] 01/18/2021 11:21 PM FINDINGS: Lungs: No focal consolidation. Left basilar pleural calcifications noted. Questionable surgical suture material projecting over the right lung base. Correlation with surgical history is recommended. Pleural spaces: No evidence of pneumothorax. No evidence of pleural effusion. Heart/Mediastinum: Postsurgical changes of the mediastinum compatible with prior CABG. Cardiomediastinal silhouette is otherwise within normal limits. Bones/joints: No evidence of acute osseous abnormality. XR/XR chest 2V* [id number] IMPRESSION: 1. No acute cardiopulmonary abnormality.
== END 2023-05-23 13:59 | disposition home or self-care (01) ==
PROVIDERS: PCP Family Medicine; Visit Provider Family Medicine
DX: R05.9 Cough, unspecified (principal); E55.9 Vitamin D deficiency, unspecified; Z51.81 Encounter for therapeutic drug level monitoring; E03.9 Hypothyroidism, unspecified; E11.9 Type 2 diabetes mellitus without complications; R10.13 Epigastric pain; R35.0 Frequency of micturition; Z13.220 Encounter for screening for lipoid disorders; E05.90 Thyrotoxicosis, unspecified without thyrotoxic crisis or storm; E53.8 Deficiency of other specified B group vitamins; Z95.5 Presence of coronary angioplasty implant and graft
CPT/HCPCS: 71046; 80053; 80061; 82306; 82607; 83036; 83690; 84153; 84439; 84443; 84481; 85025

== ENCOUNTER → 2023-07-12 15:35 | Outpatient (BNVA) | payer MEDICARE, OTHER, SELFPAY | PROVIDERS: PCP Family Medicine; Referring Provider Family Medicine; Visit Provider Internal Medicine Cardiovascular Disease | DX: R07.9 Chest pain, unspecified (principal); E11.9 Type 2 diabetes mellitus without complications; E05.90 Thyrotoxicosis, unspecified without thyrotoxic crisis or storm; I10 Essential (primary) hypertension; R94.31 Abnormal electrocardiogram [ECG] [EKG] | CPT/HCPCS: 93005; 99204 ==

== ENCOUNTER 2023-08-30 08:22 | Outpatient (CLI) | payer MEDICARE, OTHER, SELFPAY ==
--- NOTE | 2023-08-30 08:45 | ECG_ITS ---
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 Interpretive Statements NAME OF STUDY: LEXISCAN SESTAMIBI STRESS TEST INDICATION: Chest Pain, PROCEDURE: At the baseline, the EKG revealed normal sinus rhythm with normal WA and QRS duration. Some nonspecific T wave changes. The baseline heart was 73 bpm with a blood pressue of 148/68 mm of Hg Lexiscan was infused over a period of 20 seconds. A total of 0.4 milligrams of Lexiscan was infused. The stress phase was continued for a total of 5 minutes. Heart rate at the end of the stress phase was 85 bpm with a blood pressure 131/56 mm of Hg. The EKG at the peak infusion revealed no significant changes. Sestamibi was injected 20 seconds after the Lexiscan infusion. Heart rate at the end of the recovery phase was 83 bpm with a blood pressure of 142/59 mm of Hg. CONCLUSION: 1. No significant EKG changes with the LexiScan infusion 2. No LexiScan induced chest pain or cardiac arrhythmia 3. Normal blood pressure and heart rate response 4. Sestamibi/sestamibi perfusion scan pending; see separate report. Electronically Signed On 09-03-2023 12:51:51 CDT by Jolene Cedillo M.D. [id number]
[2023-08-30 08:46] VITALS: BMI 36.8
--- NOTE | 2023-08-30 08:46 | NMCV_ITS ---
NM harinder perf SPECT r/s* [id number] Rufus Hernández Age: 72 Gender: M : 1950 Exam Date: 08/30/2023 08:46 Ordering Phys: Jolene Cedillo MD ([email or web address]) Technologist: TRINI Segovia Exam Location: [facility] Indications: CORONARY ANGIOPLASTY STATUS STRESS TEST Please see separate stress test report in [facility] for full findings IMAGE PROTOCOL Rest/Stress 1 Lexiscan Day Radiopharmaceutical Dose (mCi) Administration Site Administered by Rest: Tc-99m 10.5 IV TRINI Batista Sestamibi Stress:Tc-99m 32.8 IV TRINI Batista Sestamibi Rest: 30-Aug-2023 60 Discovery 630 Stress: 30-Aug-2023 30 Discovery 630 0.4mg Lexiscan. Images obtained in supine and prone position. SPECT RESULTS Technical Quality: Excellent Raw Data Analysis: Normal Image Corrections: No attenuation or motion correction applied Summed Stress Score: 16 Summed Rest Score: 5 Summed Difference Score: 11 PERFUSION FINDINGS Moderate to large area of moderate to severely decreased tracer uptake was noted in the basal, mid and apical inferior; mid inferolateral; mid anterolateral and all the apical segments excluding the apical septum. Significant reversibility was noted in these areas. FUNCTIONAL RESULTS (calculated via Gated SPECT) Stress Image LV EF (%): 69 Stress EDV (mL):112 TID: 1.01 Stress ESV (mL):35 FUNCTIONAL FINDINGS: Segmental wall motion analysis revealing no gross wall motion abnormalities IMPRESSIONS 1. Myocardial perfusion imaging revealing moderate to large area of moderate to severely decreased tracer uptake involving the inferior, inferolateral, anterolateral and apical regions with a significant reversibility, suggesting myocardial scarring with a Significant ischemia predominantly involving the right coronary artery and circumflex artery. 2. Normal LV ejection fraction of 69%. 3. LV wall motion analysis revealing no gross wall motion abnormalities. 4. Normal LV volume No similar previous studies are available for comparison Dr Jolene Cedillo MD [facility] (Electronically Signed) Final Date: 30 Aug 2023 20:53 S
[2023-08-30] MEDS: regadenoson 0.4 Mg/5 ml Syringe 0.400000000000000022 MG IVP (10:00)
[2023-08-30 10:50] VITALS: BP 139/52; PULSE 83
== END 2023-08-30 08:23 | disposition home or self-care (01) ==
PROVIDERS: PCP Family Medicine; Visit Provider Internal Medicine Cardiovascular Disease
DX: Z98.61 Coronary angioplasty status (principal)
CPT/HCPCS: 36415; 78452; 93017; 96374; A9500; J2785

== ENCOUNTER → 2023-09-06 11:06 | Outpatient (BNVA) | payer MEDICARE, OTHER, SELFPAY | PROVIDERS: PCP Family Medicine; Visit Provider Family Medicine | DX: E03.9 Hypothyroidism, unspecified (principal); E05.90 Thyrotoxicosis, unspecified without thyrotoxic crisis or storm; E11.9 Type 2 diabetes mellitus without complications; I48.91 Unspecified atrial fibrillation; I25.10 Atherosclerotic heart disease of native coronary artery without angina pectoris; I10 Essential (primary) hypertension; R06.02 Shortness of breath; Z79.01 Long term (current) use of anticoagulants | CPT/HCPCS: 83036; 84439; 84443; 84481; 99214 ==

== ENCOUNTER 2023-09-14 05:41 | Outpatient (CLI) | payer MEDICARE, OTHER, SELFPAY ==
[2023-09-14] VITALS (36 sets, daily range): BP systolic 115–154; BP diastolic 51–75; PULSE 62–75; RESP 4–20; TEMP 36.7–36.9; O2SAT 94–96; BMI 38.2
--- NOTE | 2023-09-14 06:00 | XACV_ITS ---
Exam Room: 2 Ht: 183 cm Wt: 128 kg BSA: 2.60 m2 Gender: Male : 1950 Any Known Allergies: Other Exam Priority: Routine Procedure(s): Procedure Description: Diagnostic procedure Procedure Description: PCI procedure Procedure Description: Left Heart Catheterization Procedure Description: Left ventriculography Procedure Description: Coronary IVUS Procedure Description: Drug Eluting Coronary Stent Procedure Description: PTCA Procedure Description: Miscellaneous Procedure Description: Angio-Seal Procedure Description: ACT Procedure Description: Coronary Angiography Mamadou BORREGO; Diagnostic Cath Status: Elective Diagnostic Findings * The left main is a medium caliber vessel with 30 to 40% ostial narrowing. * The left anterior descending artery is a medium caliber vessel which was found to have minimal intimal nodularity proximally. The mid segment of the artery was found to have severe diffuse disease. The first diagonal branch was found to have around 70 to 80% tubular narrowing in the proximal segment. The mid LAD was found to have severe diffuse disease. The second diagonal branch arising from the segment there was found to be bifurcating proximally. Both bifurcation branches were found to have 80 to 90% stenosis proximally. This vessel appears to be of small to medium caliber. The artery appears to be totally occluded after the second diagonal branch. * The left circumflex artery is a medium caliber vessel which was found to have an ostial around 60 to 70% stenosis. The distal artery appears to have minimal intimal irregularities. The artery appears to gives off [id number] collaterals to the PLV branch of the right coronary artery. * The right coronary artery appears to be totally occluded after giving of the sinus ramona branch. * The 70s and had to have the right coronary artery was found to be patent. The proximal segment of the venous graft was found to have around 70% stenosis. The PLV branch of the right coronary artery appears to be subtotally occluded. * The WALKER to the distal LAD was found to be widely patent. The arterial graft patient very tortuous. The distal LAD was found to have mild diffuse intimal irregularities. PCI Status: Elective PCI Indication: Other Interventional Findings * 1st Diagonal: 80% stenosis treated with a MDT NC EUPHORA RX [id number] BALLOON, MDT R ABDIRAHMAN 3.0X30 ESTELA, and MDT NC EUPHORA RX [id number] BALLOON. * Procedure detail: We engaged SVG to RCA graft with JR4 guide catheter. IV heparin was administered to maintain anticoagulation. 0.014 run-through guidewire was used to cross the stenosis and was put in distal vessel. This was followed by placement of 3.0 x 15 mm resolute Abdirahman drug-eluting stent in the proximal segment of the vessel. At this time final angiogram showed excellent stent expansion and no residual stenosis. Guidewire and guide catheter were removed. We then turned our attention to large sized diagonal artery. Left main artery was engaged using XB 3.5 guide catheter. 0.014 run-through guidewire was used to cross the stenosis and was put in distal diagonal artery. First we obtained IVUS to assess left main. MLA was 6.2 mm2. We then proceeded with predilation of diagonal artery stenosis with 2.75 x 15 mm NC balloon. This was followed by placement of 3.0 x 30 mm resolute Abdirahman drug-eluting stent. We postdilated the stent with 3.25 x 12 mm NC balloon. Final angiogram showed excellent stent expansion and GRISEL 3 flow. Patient left the cardiac cath technician in a stable condition. . Conclusions 1. This is a 72-year-old white male with a history of hypertension, dyslipidemia, type 2 diabetes, two-vessel coronary bypass surgery, presents with complaints of palpitations associated with a burning sensation in the chest. He had a Myocardial perfusion imaging which revealed moderate to large area of moderate to severely decreased tracer uptake involving the inferior, inferolateral, anterolateral and apical regions with a significant reversibility suggesting myocardial scarring with ischemia predominantly involving the right coronary artery/circumflex artery. In view of the patient's symptoms and the abnormal objective findings, in order to further evaluate his coronary status, a cardiac catheterization was recommended. Patient underwent left heart catheterization with a left and right coronary angiogram, LV angiogram and graft angiogram today. The findings are as follows. 2. 1. 30 to 40% narrowing in the proximal left main. 2.Total occlusion of the mid LAD after the second diagonal branch. 70 to 80% tubular narrowing of the first diagonal branch. High-grade lesions at the bifurcations of the second diagonal branch, a small to medium caliber vessel. 3. 60 to 70% ostial stenosis of the circumflex artery. It is a nondominant vessel. 4. Total occlusion of the right coronary artery near the ostium.5. Patent venous graft to the distal the right coronary artery with 70% stenosis in the proximal segment of the graft.6. Patent WALKER to the distal LAD. [id number] collaterals to the PLV branch of the right coronary artery. N7.ormal LV ejection fraction of 55%. LVEDP of 19 mmHg. 3. I reviewed and discussed the cardiac catheterization data with Dr. Lee. Based on the angiographic findings, it is thought to be appropriate to consider PCI of the first diagonal and venous graft to the RCA. Possible IFR of the ostial circumflex lesion. 4. Successful revascularization of SVG to RCA with 1 stent. Successful revascularization of diagonal artery with 1 stent. 5. 1st Diagonal was treated with a Balloon, Drug Eluting Stent, and Balloon. Recommendations * Dual antiplatelet therapy for atleast 1 year. * Moderate to severe left circumflex artery can be treated medically. If has significant symptoms can consider stress test as outpatient. * Outpatient cardiology follow up in 2-4 weeks. Interventional RX Recommendation: PCI w/o planned CABG Diagnostic RX Recommendation: PCI w/o planned CABG Anticoagulation: Heparin Ventriculography Ejection Fraction: 55.0 % LV EDP: 19 mmHg Left Ventriculography Findings: * LV gram was performed in the SOLER projection. The LVEDP was 19 mmHg. There is no filling defects or any significant mitral valve prolapse. LV ejection fraction was around 55%. LVEDP was 19 mmHg. Pressures Phase:Rest AO : 112 / 65 ( 86 ) @ 8:30:00 AM 132 / 59 ( 89 ) @ 8:36:00 AM 111 / 65 ( 87 ) @ 8:37:00 AM 113 / 65 ( 88 ) @ 8:38:00 AM 147 / 52 ( 89 ) @ 8:56:00 AM 153 / 46 ( 90 ) @ 8:56:00 AM 147 / 65 ( 100 ) @ 9:07:00 AM 75 / 44 ( 59 ) @ 9:23:00 AM 126 / 58 ( 87 ) @ 9:24:00 AM 96 / 58 ( 76 ) @ 9:30:00 AM 132 / 63 ( 93 ) @ 9:40:00 AM LV : 161 / -23 / 19 @ 8:55:00 AM 153 / -19 / 16 @ 8:56:00 AM 153 / -18 / 17 @ 8:56:00 AM Valves Phase:DefaultPhase AV : 7.0 @ 8:53:34 AM 7.0 @ 8:53:34 AM AV Mean Gradient: 10.0 @ 8:53:34 AM Clinical Evaluation EBL: 5mL-10mL Procedural Details Procedure Consent Obtained. Current Diagnosis : Chest Pain. Pre-Procedure Time Out. Identified patient by full name and date of as verbalized by the patient/guarantor. Does the consent match the physician's order: Yes. Accurate & Complete Informed Consent: Yes. Inpatient/Outpatient History & Physical on Chart: Yes. If H&P is completed, is and addenduem needed: No; If yes, is the addendum complete: N/A. Visualize and Verify Site with Patient/Guarantor: N/A. Relevant Radiology Images available: Yes. The risks, benefits, and alternatives of sedation and/or procedure were discussed by physician. The patient agrees to continue. Procedure started. [facility] Clinical Fraility Score: 3: Managing Well. Software Systems Analyst Indications: Worsening Angina. Chest Pain Symptom Assessment: Atypical Angina. Correct patient, site and procedure confirmed by cath team. Current diagnosis: Chest Pain. PERRLA. Strong, equal hand microfilm processor bilaterally. Lungs clear x 5 lobes. IV Site on Arrival: 20 gauge in the left wrist. IV Fluids: 0.9% NaCl at KVO. 0 mL infused prior to cardiac cath technician. Pre Procedural Pulses: bilateral dorsalis pedis was 2+. Pre Procedural Pulses: bilateral posterior tibial was 2+. Pre Procedural Pulses: bilateral radial was 2+. Oxygen started at 2liters/min via nasal canula. right groin was prepped with chloroprep then draped in the usual sterile fashion. right radial was prepped with chloroprep then draped in the usual sterile fashion. Baseline sample Acquired. HR: 67 BPM. Physician arrived. Physician scrubbed in. Immediate Pre-Procedure Time Out. Correct Patient: Yes; Correct Procedure: Yes; Correct Site: Yes; Correct Patient Position: Yes; Correct Supplies: Yes; Dried Flammable Prep: Yes; Blood Products Available: N/A;. Lidocaine 1% infiltrated to the right groin. Arterial access obtained with micropuncture set. A 5 bangladeshi JL4 catheter in over wire. Multiple views taken of left coronary artery. Catheter removed over the standard wire. A 5 bangladeshi JR4 catheter in over wire. A view taken of right coronary artery. SVG's to RCA visualized and patent. Dr. Lee arrived to review films. Catheter removed over the exchange wire. A 5 bangladeshi IM catheter in over wire. WALKER to LAD visualized. Catheter removed over the exchange wire. A 5 bangladeshi Angled Pig catheter in over wire. EDP Sample taken: LV 161/-24,19; HR: 69 BPM; SpO2: 98%. LV gram performed in SOLER @ 10 mL/second for a total of 30 mL. EDP Sample taken: LV 153/-20,16; HR: 70 BPM; SpO2: 98%. Pullback taken: LV 153/-19,17; AO 147/52(89); Mean: 10mmHg, Peak to Peak: 7mmHg, SEP: 18sec/min; HR: 70 BPM; SpO2: 98%. Catheter removed over the exchange wire. Physician scrubbed out. Patient's family updated. Dr. Lee scrubbed in to perform intervention. 6 bangladeshi JR 4 guide catheter was inserted over the wire. Runthrough guidewire was advanced through the guide catheter to lesion in the prox RCA. Inflation Number : 1 A MDT R ABDIRAHMAN 3.0X15 ESTELA -Lot Number# _[id number] EXP: 09/02/2025 was prepped and advanced across the Aorta Right -> Prox RCA. The stent was deployed at 12 SRIKANTH for 0:15 seconds. Stent balloon out over wire. Results checked. Wire out. Guide catheter out. ACT drawn. Results 295 seconds. Therapeutic limits - pre-heparin administration 90-150 seconds and monitoring heparin during a vascular procedure >250 seconds. 6 bangladeshi XB 3.5 guide catheter was inserted over the wire. Runthrough guidewire was advanced through the guide catheter to lesion in the diaganol. Wire out. Guide catheter out. 6 bangladeshi XB 3 guide catheter was inserted over the wire. Runthrough guidewire was advanced through the guide catheter to lesion in the LMCA. IVUS catheter inserted OTW and advanced to the LMCA. IVUS measurements obtained. IVUS catheter removed OTW. Wire redirected to the Diag. Inflation number : 1 A MDT NC EUPHORA RX [id number] BALLOON was prepped and advanced across the 1st Diag , then inflated to 16 SRIKANTH for 0:23 seconds. Inflation number: 2 The MDT NC EUPHORA RX [id number] BALLOON was reinflated across the 1st Diag, to 12 SRIKANTH for 0:11 seconds. Balloon out. Inflation Number : 3 A MDT R ABDIRAHMAN 3.0X30 ESTELA -Lot Number# _[id number] EXP: 06/15/2024 was prepped and advanced across the 1st Diag. The stent was deployed at 12 SRIKANTH for 0:25 seconds. Stent balloon out over wire. Results checked. Inflation number : 4 A MDT NC EUPHORA RX [id number] BALLOON was prepped and advanced across the 1st Diag , then inflated to 20 SRIKANTH for 0:21 seconds. Balloon out. Wire out. Guide catheter out. ACT drawn. Results out of range high seconds. Therapeutic limits - pre-heparin administration 90-150 seconds and monitoring heparin during a vascular procedure >250 seconds. A Right femoral angiogram was performed to determine safe placement of closure device. A Angio-Seal VIP ([place]) was successful obtaining hemostatsis at the Right Femoral artery insertion site. Lidocaine 1% infiltrated to the right groin. Post Procedure: Pulses reassessed and unchanged. PERRLA. Strong, equal hand microfilm processor bilaterally. No VTE prophylaxis required. Medication's Wasted: Other = Fentanyl 75 mcg. Total IV fluids: 125 mL. Medication's Wasted: Heparin = 2500 units. Medication's Wasted: Lidocaine 1% = 3 mL. Post-op diagnosis: CAD. Complications: None. Estimated blood loss: 5mL-10mL. Responsiveness - Normal response to verbal stimuli; alert and oriented, PERRLA. Vital chart was stopped. Airway - Unaffected, no intervention required; spontaneous ventilation. Circulation: W/N/L, pulses unchanged. Nausea/Vomiting: No. Procedure completed. Patient transferred by bed to CPRU. Access Site Site: Right Femoral artery Sheath Size: 6 Fr Hemostasis Method: Angio-Seal VIP ([place]) Hemostasis Success: Successful Procedure Medications Start: 7:14 AM Stop: 7:14 AM Medication: Versed Amount: 1 mg Route: I.V. Start: 7:20 AM Stop: 7:20 AM Medication: Fentanyl Amount: 25 mcg Route: I.V. Start: 7:24 AM Stop: 7:24 AM Medication: Versed Amount: 1 mg Route: I.V. Start: 7:26 AM Stop: 7:26 AM Medication: Fentanyl Amount: 25 mcg Route: I.V. Start: 7:34 AM Stop: 7:34 AM Medication: Fentanyl Amount: 25 mcg Route: I.V. Start: 7:37 AM Stop: 7:37 AM Medication: Heparin Amount: 1500 units Route: I.V. Start: 7:46 AM Stop: 7:46 AM Medication: Fentanyl Amount: 25 mcg Route: I.V. Start: 8:05 AM Stop: 8:05 AM Medication: Heparin Amount: 13186 units Route: I.V. Start: 8:06 AM Stop: 8:06 AM Medication: Versed Amount: 1 mg Route: I.V. Start: 8:19 AM Stop: 8:19 AM Medication: Heparin Amount: 1000 units Route: I.V. Start: 8:21 AM Stop: 8:21 AM Medication: Fentanyl Amount: 25 mcg Route: I.V. Start: 8:22 AM Stop: 8:22 AM Medication: Versed Amount: 1 mg Route: I.V. Start: 8:32 AM Stop: 8:32 AM Medication: Heparin Amount: 1000 units Route: I.Julianna Guevara, the attending physician, have reviewed and verified all procedure medications. Yes, all medications given per verbal order History/Risk Factors Hypertension: Yes Dyslipidemia: No Peripheral Arterial Disease (PAD): No Myocardial Infarction (CT): No Obesity: No Renal Disease: No Tobacco Use: Never Prior Interventions PCI: No CABG: Yes Valve Surgery: No Report Signatures Interventional Workflow Finalized by Thai Lee MD on 09/19/2023 12:10 PM Diagnostic Workflow Finalized by Dr Jolene Cedillo MD [facility] on 09/14/2023 11:44 PM
[2023-09-14] MEDS: diphenhydrAMINE 50 mg Capsule PO (06:29)
[2023-09-14 06:41] LABS: Basophils # 0.1 10^3/uL (0.0-0.1); Basophils % 1.1 %; Eosinophils # 0.5 10^3/uL (0.0-0.8); Eosinophils % 6.1 %; Hematocrit 41.4 % (37-53); Lymphocytes # 1.9 10^3/uL (0.8-4.8); Lymphocytes % 26.2 %; Mean Corpuscular HGB Conc 34.3 g/dL (30-55); Mean Corpuscular Hemoglobin 30.7 pg (27-33); Mean Corpuscular Volume 89.6 fl (82-101); Mean Platelet Volume 9.5 fL (7.4-10.4); Monocytes # 0.9 10^3/uL (0.2-0.9); Monocytes % 11.6 %; Neutrophils # 4.02 10^3/uL (1.8-7.7); Neutrophils % 54.9 %; Nucleated Red Blood Cells % 0 %; Platelet Count 185 10^3/cmm (157-399); Red Blood Count 4.62 10^6/uL (3.85-5.65); Red Cell Distribution Width 13.2 % (12.1-15.1); White Blood Count 7.33 10^3/uL (3.29-11.43)
[2023-09-14 06:45] LABS: Anion Gap 14.1 (5-19); Blood Urea Nitrogen 10 mg/dL (8-23); Carbon Dioxide 26 mmol/L (22-29); Chloride 101 mmol/L (98-107); Glucose 150 mg/dL (65-115); Osmolality Calculated 286 mOsm/kg (285-295); Potassium 4.1 mmol/L (3.5-5.1); Sodium 137 mmol/L (136-145)
--- NOTE | 2023-09-14 07:09 | W.PM.OPSUD ---
Surgery/Procedure H&P Update DATE OF PROCEDURE: September 14, 2023 DATE H&P PERFORMED: 09/06/23 H&P UPDATE INFORMATION: I have reviewed H&P completed within last 30 days, I have examined patient prior to procedure and No changes to prior documentation PREOP DIAGNOSIS: ASHD PRIMARY INDICATION FOR PROCEDURE: Abnormal stress test/history of coronary artery bypass surgery/atrial fibrillation PLANNED PROCEDURE: Operation Date: 09/14/23 07:00 Proposed Procedures p Cardiac Catheterization(Left) - Jolene Cedillo MD PATIENT REASSESSED PRIOR TO SEDATION, WITH NO CHANGE NOTED: Yes PHYSICAL EXAM: alert, oriented x 3, clear to auscultation bilaterally and regular rate & rhythm AIRWAY EVAL/ANESTHESIA PLAN: normal airway, see other exam findings, ASA III, Monitored Anesthesia, Local Anesthesia, Risks, benefits & alternatives of sedation and/or procedure discussed and Patient agrees to continue as planned
--- NOTE | 2023-09-14 09:00 | SUR.PHASEI ---
POST CATH NOTE Received patient from laboratory aide. Status post cardiac catheterization via the right femoral approach. Site angio sealed post cath and is hemostatic and free of s/s of hematoma. Vitals and assessments per flowsheet. Verbal post cath instructions given. Verbalized understanding. Family at bedside. Call light in reach. Informed to call for needs.
[2023-09-14] MEDS: sodium chloride 0.9% 1,000 ML 75 ML IV (12:15)
[2023-09-14] MEDS: levothyroxine 112 mcg Tablet PO (15:31)
[2023-09-14] MEDS: potassium chloride ER 10 mEq Tablet PO (15:31)
[2023-09-14 17:08] LABS: Glucose Point of Care 136 mg/dL (70-110)
[2023-09-14] MEDS: insulin lispro 100 unit/1 mL 25 UNIT SUBCUT (17:48)
--- NOTE | 2023-09-14 18:49 | PC.NURSE ---
Mr. Hernández has finished 1 bag of IVF and stated that he didn't need anymore that he could drink plenty of water and he will be fine. Informed by incinerator plant laborer RN that he was to get NS @ 75ml/hr x 12 hrs. Informed plasma center technician RN of the pt's wishes for not having anymore IVF's.
[2023-09-14 21:24] LABS: Glucose Point of Care 151 mg/dL (70-110)
[2023-09-14] MEDS: dilTIAZem ER (24HR) 180 mg Capsule PO (21:26)
[2023-09-14] MEDS: lisinopril 20 mg Tablet PO (21:26)
[2023-09-14] MEDS: atorvastatin 40 mg Tablet PO (21:26)
[2023-09-14] MEDS: aspirin 325 mg Tablet PO (21:26)
[2023-09-14] MEDS: alum-mag-hydroxide-sime 30 mL UDC PO (22:24)
[2023-09-15 00:27] VITALS: BP 158/60; PULSE 72; RESP 18; TEMP 36.7
[2023-09-15 04:11] VITALS: BP 122/56; PULSE 78; RESP 11; TEMP 36.7
[2023-09-15 05:52] VITALS: PULSE 75
[2023-09-15 06:29] LABS: Glucose Point of Care 182 mg/dL (70-110)
[2023-09-15 07:03] VITALS: BP 148/48; PULSE 74; RESP 10; TEMP 36.8; O2SAT 97
[2023-09-15] MEDS: potassium chloride ER 10 mEq Tablet PO (07:50)
[2023-09-15] MEDS: aspirin 325 mg Tablet PO (07:50)
[2023-09-15] MEDS: dilTIAZem ER (24HR) 180 mg Capsule PO (07:50)
[2023-09-15] MEDS: clopidogrel 75 mg Tablet PO (07:50)
[2023-09-15] MEDS: pantoprazole DR 40 mg Tablet PO (07:50)
[2023-09-15] MEDS: lisinopril 20 mg Tablet PO (07:50)
[2023-09-15] MEDS: levothyroxine 112 mcg Tablet PO (07:50)
[2023-09-15] MEDS: insulin glargine 100 units/1 mL 44 UNIT SUBCUT (08:18)
--- NOTE | 2023-09-15 09:28 | P.PN_ITS ---
Subjective 2 Subjective: Patient had a cardiac catheterization yesterday. He was found to have high- grade lesions in the proximal segment of the first diagonal branch and the venous graft to the right coronary artery. He underwent a PCI of these lesions. Further details of the cardiac catheterization, please refer to the catheterization report on 09/14/2023 Medications: Medication Review Details: Current Medications Acetaminophen (Acetaminophen 325 Mg Tablet) 650 mg PO Q6H PRN PRN Reason: MILD PAIN Al Hydrox/Mg Hydrox/Simethicone (Yanh-Hmf-Httoemzzd-Cary 30 Ml Udc) 30 ml PO Q15M PRN PRN Reason: INDIGESTION Last Admin: 09/14/23 22:24 Dose: 30 ml Alprazolam (Alprazolam 0.5 Mg Tablet) 0.25 mg PO TID PRN PRN Reason: ANXIETY Aspirin (Aspirin 325 Mg Tablet) 325 mg PO DAILY [facility] Last Admin: 09/15/23 07:50 Dose: 325 mg Atorvastatin Calcium (Atorvastatin 40 Mg Tablet) 40 mg PO BEDTIME [facility] Last Admin: 09/14/23 21:26 Dose: 40 mg Atropine Sulfate (Atropine 1 Mg/Ml Sdv 1 Ml) 0.5 mg IVP PRN PRN PRN Reason: Symptomatic bradycardia Clopidogrel Bisulfate (Clopidogrel 75 Mg Tablet) 75 mg PO DAILY [facility] Last Admin: 09/15/23 07:50 Dose: 75 mg Diltiazem HCl (Diltiazem Er (24hr) 180 Mg Capsule) 180 mg PO DAILY [facility] Last Admin: 09/15/23 07:50 Dose: 180 mg Fentanyl (Fentanyl 50 Mcg/Ml Inj 2ml) 50 mcg IVP PRN PRN PRN Reason: PAIN Furosemide (Furosemide 20 Mg Tablet) 20 mg PO DAILY PRN PRN Reason: edema Sodium Chloride (Sodium Chloride 0.9%) 1,000 mls @ 100 mls/hr IV .Q10H [facility] Last Admin: 09/14/23 23:51 Dose: Not Given Insulin Glargine (Insulin Glargine 100 Units/1 Ml) 44 unit SUBCUT DAILY [facility] Last Admin: 09/15/23 08:18 Dose: 44 unit Insulin Human Lispro (Insulin Lispro 100 Unit/1 Ml) 25 unit SUBCUT TIDWM [facility] Last Admin: 09/15/23 08:18 Dose: Not Given Levothyroxine Sodium (Levothyroxine 112 Mcg Tablet) 112 mcg PO DAILY [facility] Last Admin: 09/15/23 07:50 Dose: 112 mcg Lisinopril (Lisinopril 20 Mg Tablet) 20 mg PO DAILY [facility] Last Admin: 09/15/23 07:50 Dose: 20 mg Magnesium Hydroxide (Magnesium Hydroxide 30 Ml Udc) 30 ml PO DAILY PRN PRN Reason: CONSTIPATION Nitroglycerin (Nitroglycerin 0.4 Mg Sublingual Tablet) 0.4 mg SUBLINGUAL Q5M PRN PRN Reason: Chest Pain Non-Formulary Medication (Coenzyme Q10 [Coq-10]) 100 mg PO DAILY [facility] Last Admin: 09/15/23 07:36 Dose: Not Given Non-Formulary Medication (Avmtkgvprgf-Rylwbncdp-Cvb C-Mn [Glucosamine- Chondroitin Complx]) 1 cap PO DAILY [facility] Last Admin: 09/15/23 07:36 Dose: Not Given Non-Formulary Medication (Ai-Aky-Tszcl-Q2-Dtsbulg-Nwvedq [Centrum Minis Men 50 Plus]) 1 tab PO DAILY [facility] Last Admin: 09/15/23 07:36 Dose: Not Given Non-Formulary Medication (Saw Reynolds) 160 mg PO DIRECTED [facility] Non-Formulary Medication (Zinc Gluconate) 30 mg PO .Twice a week [facility] Pantoprazole Sodium (Pantoprazole Dr 40 Mg Tablet) 40 mg PO DAILY [facility] Last Admin: 09/15/23 07:50 Dose: 40 mg Potassium Chloride (Potassium Chloride Er 10 Meq Tablet) 10 meq PO DAILY [facility] Last Admin: 09/15/23 07:50 Dose: 10 meq Temazepam (Temazepam 15 Mg Capsule) 15 mg PO BEDTIME PRN PRN Reason: INSOMNIA Vitamin D (Cholecalciferol (Vitamin D3) 1,000 Unit Tablet) 5,000 unit PO .Twice a week [facility] Vitals/I&O/Wt Last Vital Signs Temp 98.2 F 09/15/23 07:03 Pulse 74 09/15/23 07:03 Resp 10 L 09/15/23 07:03 BP 148/48 09/15/23 07:03 Pulse Ox 97 09/15/23 07:03 O2 Del Method Room Air 09/15/23 07:03 09/14/23 09/15/23 09/15/23 22:59 06:59 14:59 Intake Total 1840 / 2320 Balance 1840 / 1720 Weight last 48 hrs Weight 282 lb Physical Exam 2 Narrative: GENERAL: The patient is alert and oriented times three. Not in any acute distress. Obese. HEENT: No significant pallor, icterus or lymphadenopathy.Oral cavity: There are no mucous membrane lesions. NECK: Trachea appears to be central. No masses noted. No JVD or thyromegaly appreciated. RESPIRATORY: Chest is symmetrical. No intercostals muscle retraction or any accessory muscle activation. There is no chest wall tenderness. Breath sounds are heard bilaterally. No rales or rhonchi heard. No evidence of any consolidation. BREASTS: Deferred. HEART: The heart sounds are normal. No S3 or S4. No significant murmurs. No pericardial rub ABDOMEN: No vessel pulsations or distention. No tenderness. No organomegaly appreciated. Bowel sounds are normally heard. : Deferred. RECTAL: Deferred. LYMPHATIC: No lymphadenopathy noted in the neck. EXTREMITIES: The radial arterial puncture site has no hematoma bleeding MUSCULOSKELETAL: No acute joint deformities or swelling SKIN: There are no significant rashes or ecchymosis NEUROPSYCHIATRIC: The patient is alert and oriented x3. Appears to be in a good mood. No tremors or rigidity noted. Data 09/14/23 06:20 09/14/23 06:20 Other Labs: Laboratory Last Values WBC 7.33 10^3/uL (3.29-11.43) 09/14/23 06:20 RBC 4.62 10^6/uL (3.85-5.65) 09/14/23 06:20 Hgb 14.20 g/dL (11.27-16.99) 09/14/23 06:20 Hct 41.4 % (37-53) 09/14/23 06:20 MCV 89.6 fl (82-101) 09/14/23 06:20 MCH 30.7 pg (27-33) 09/14/23 06:20 MCHC 34.3 g/dL (30-55) 09/14/23 06:20 RDW 13.2 % (12.1-15.1) 09/14/23 06:20 Plt Count 185 10^3/cmm (157-399) 09/14/23 06:20 MPV 9.5 fL (7.4-10.4) 09/14/23 06:20 Neut % (Auto) 54.9 % 09/14/23 06:20 Lymph % (Auto) 26.2 % 09/14/23 06:20 [place] % (Auto) 11.6 % 09/14/23 06:20 Eos % (Auto) 6.1 % 09/14/23 06:20 Baso % (Auto) 1.1 % 09/14/23 06:20 Neut # (Auto) 4.02 10^3/uL (1.8-7.7) 09/14/23 06:20 Lymph # (Auto) 1.9 10^3/uL (0.8-4.8) 09/14/23 06:20 [place] # (Auto) 0.9 10^3/uL (0.2-0.9) 09/14/23 06:20 Eos # (Auto) 0.5 10^3/uL (0.0-0.8) 09/14/23 06:20 Baso # (Auto) 0.1 10^3/uL (0.0-0.1) 09/14/23 06:20 Nucleated RBC % (auto) 0 % 09/14/23 06:20 Nucleated RBCs # 0.0 /100WBC 09/14/23 06:20 Sodium 137 mmol/L (136-145) 09/14/23 06:20 Potassium 4.1 mmol/L (3.5-5.1) 09/14/23 06:20 Chloride 101 mmol/L (98-107) 09/14/23 06:20 Carbon Dioxide 26 mmol/L (22-29) 09/14/23 06:20 Anion Gap 14.1 (5-19) 09/14/23 06:20 BUN 10 mg/dL (8-23) 09/14/23 06:20 Creatinine 0.7 mg/dL (0.7-1.2) 09/14/23 06:20 GFR Calculation Not Reportable 09/14/23 06:20 Glucose 150 mg/dL (65-115) H 09/14/23 06:20 POC Glucose 182 mg/dL (70-110) H 09/15/23 06:24 Calculated Osmolality 286 mOsm/kg (285-295) 09/14/23 06:20 Calcium 9.0 mg/dL (8.5-10.5) 05/22/24 06:20 A&P Assessment and plan (1) Atherosclerotic heart disease of [place] coronary artery with other forms of angina pectoris: Patient status post PCI, currently seems to be stable with no recurrence of chest pain. Will continue on the Plavix and aspirin. (2) Hypertension: Since the blood pressure is in the normal range, patient may not require any medication changes at this time. Advised to continue on the current measures. Qualifiers: Hypertension type: primary hypertension Qualified Code(s): I10 - Essential (primary) hypertension (3) New onset atrial flutter: Patient has a history of easy bruising. At this point, he may continue on the current medications. (4) Type 2 diabetes mellitus: Importance of appropriate blood sugar control, cardiovascular complications of uncontrolled diabetes and the need for dietary compliance were discussed. Patient seems to understand these well. Advised to have close follow-up with the primary care provider Qualifiers: Diabetes mellitus complication status: without complication Diabetes mellitus terminal computer operator insulin use: without terminal computer operator use Qualified Code(s): E11.9 - Type 2 diabetes mellitus without complications (5) Dyslipidemia: Patient is known to have dyslipidemia. Advised to continue on the current medications. Will have the follow-up evaluation as scheduled. Patient understands the importance of dietary compliance Plan Since the patient continues to remain stable, will be discharged home today. Patient will be seen at [facility] in 1 to 2 weeks by the nurse practitioner Patient will be seen by me in the office in a month Patient is advised to continue the medications as mentioned above. The importance of compliance to diet, medications and exercise were discussed. In the event of the patient developing chest pain ,unusual palpitations or any new symptoms, is advised to contact me or come to the hospital. Attestations 2 Medical Necessity Statement*: Discharge home today Coding Level of Care Code 42746 Diagnoses Atherosclerotic heart disease of [place] coronary artery with other forms of angina pectoris I25.118 Primary hypertension I10 Hypertension type: primary hypertension New onset atrial flutter I48.92 Type 2 diabetes mellitus without complication, without long-term current use of insulin E11.9 Diabetes mellitus complication status: without complication Diabetes mellitus terminal computer operator insulin use: without chcf use Dyslipidemia E78.5
--- NOTE | 2023-09-15 11:45 | PC.NURSE ---
Discharge Note Patient discharged to home via POV accompanied by spouse. Discharge instructions reviewed with patient and/or digital sales representative. Mobile pharmacy medications and/or prescriptions provided. Belongings/home medications returned.
== END 2023-09-15 11:54 | disposition home or self-care (01) ==
LOC: CCL 05:42 → CSU 09:36
PROVIDERS: Internal Medicine; PCP Family Medicine; Visit Provider Internal Medicine Cardiovascular Disease
DX: I25.118 Atherosclerotic heart disease of native coronary artery with other forms of angina pectoris (principal); I65.22 Occlusion and stenosis of left carotid artery; I10 Essential (primary) hypertension; I48.92 Unspecified atrial flutter; E11.9 Type 2 diabetes mellitus without complications; E78.5 Hyperlipidemia, unspecified; Z79.82 Long term (current) use of aspirin; Z79.4 Long term (current) use of insulin; E03.9 Hypothyroidism, unspecified
CPT/HCPCS: 36415; 36416; 80048; 82962; 85025; 85347; 92978; 93458; 96372; 96374; 96375; 99152; 99153; C1725; C1753; C1760; C1769; C1874; C1887; C1894; C9600; C9601; G0269; J1644; J1815; J2250; J3010; J7030; Q0163; Q9967

== ENCOUNTER → 2023-09-29 09:04 | Outpatient (BNVA) | payer MEDICARE, OTHER, SELFPAY | PROVIDERS: PCP Family Medicine; Visit Provider Nurse Practitioner Family | DX: I25.10 Atherosclerotic heart disease of native coronary artery without angina pectoris (principal); Z95.1 Presence of aortocoronary bypass graft | CPT/HCPCS: 99213 ==

== ENCOUNTER → 2023-11-25 08:17 | Outpatient (BNVA) | payer MEDICARE, OTHER, SELFPAY | PROVIDERS: PCP Family Medicine; Visit Provider Clinical Nurse Specialist Adult Health | DX: N13.30 Unspecified hydronephrosis (principal); N20.0 Calculus of kidney; R30.0 Dysuria; D72.829 Elevated white blood cell count, unspecified; E11.9 Type 2 diabetes mellitus without complications | CPT/HCPCS: 80053; 81000; 81015; 85025; 87086 ==

== ENCOUNTER → 2023-12-29 09:50 | Outpatient (BNVA) | payer MEDICARE, OTHER, SELFPAY | PROVIDERS: PCP Family Medicine; Visit Provider Internal Medicine Cardiovascular Disease | DX: I25.10 Atherosclerotic heart disease of native coronary artery without angina pectoris (principal); Z86.79 Personal history of other diseases of the circulatory system; E78.5 Hyperlipidemia, unspecified; I10 Essential (primary) hypertension; E11.9 Type 2 diabetes mellitus without complications; E03.8 Other specified hypothyroidism | CPT/HCPCS: 99214 ==

== ENCOUNTER → 2024-01-24 12:32 | Outpatient (BNVA) | payer MEDICARE, OTHER, SELFPAY | PROVIDERS: PCP Family Medicine; Visit Provider Family Medicine | DX: Z13.220 Encounter for screening for lipoid disorders (principal); Z51.81 Encounter for therapeutic drug level monitoring; E55.9 Vitamin D deficiency, unspecified; E11.9 Type 2 diabetes mellitus without complications; E03.9 Hypothyroidism, unspecified; R35.0 Frequency of micturition | CPT/HCPCS: 80053; 80061; 82306; 83036; 84153; 84439; 84443; 85025 ==

== ENCOUNTER → 2024-06-25 11:15 | Outpatient (BNVA) | payer MEDICARE, OTHER, SELFPAY | PROVIDERS: PCP Family Medicine; Visit Provider Nurse Practitioner Family | DX: I25.10 Atherosclerotic heart disease of native coronary artery without angina pectoris (principal); Z95.5 Presence of coronary angioplasty implant and graft; Z95.1 Presence of aortocoronary bypass graft; I10 Essential (primary) hypertension | CPT/HCPCS: 99214 ==

== ENCOUNTER 2024-06-29 13:53 | Outpatient (CLI) | payer MEDICARE, OTHER, SELFPAY ==
--- NOTE | 2024-06-29 14:15 | USCV_ITS ---
Rufus Hernández Age: 73 Gender: M : 1950 Exam Date: 06/29/2024 14:24 Ordering Phys: Etelvina Knutson NP Technologist: Tano Nina Exam Location: [facility] [place] Indication: carotid artery disease Risk Factors: Previous Vascular Surgery: Right Brachial BP: / Left Brachial BP: / Right Left Velocity (cm/s) Spectral Plaque Velocity (cm/s) Spectral Plaque Syst/Diast Broadening Syst/Diast Broadening 83.00/ 11.60 Prox CCA 112.20/ 16.90 90.60/ 16.70 Mid CCA 88.40 / 15.20 75.20/ 14.90 Distal CCA 79.90 / 11.70 82.20/ 19.00 Prox ICA 205.60/ 63.90 56.00/ 18.60 Mid ICA 169.20/ 55.40 55.90/ 17.50 Distal ICA 167.30/ 51.50 119.90 ECA 133.80 1.10 ICA/CCA 2.60 Antegrade Vertebral Antegrade 46.30/ 12.70 cm/s 56.40/ 9.40 cm/s Tri Subclavian Tri 107.1 147.2 0 0 FINDINGS Comparison:. 10/26/19 Increasing plaque and velocity left ICA since the prior exam. Mild turbulence of the waveform. Focal dense plaque right ICA. Antegrade vertebral arteries. CONCLUSIONS Left ICA stenosis 50-69%. Mild progression of velocity and plaque. Right ICA stenosis < 50%. Dr. Madyson Osuna DO (Electronically Signed) Final Date: 02 July 2024 07:45 Amended: 02 July 2024 12:18 C
== END 2024-06-29 13:54 | disposition home or self-care (01) ==
LOC: RAD 13:56
PROVIDERS: PCP Family Medicine; Visit Provider Nurse Practitioner Family
DX: I77.9 Disorder of arteries and arterioles, unspecified (principal); I65.23 Occlusion and stenosis of bilateral carotid arteries
CPT/HCPCS: 93880

== ENCOUNTER → 2024-07-03 10:44 | Outpatient (BNVA) | payer MEDICARE, OTHER, SELFPAY | PROVIDERS: PCP Family Medicine; Visit Provider Family Medicine | DX: Z00.00 Encounter for general adult medical examination without abnormal findings (principal); E11.9 Type 2 diabetes mellitus without complications; Z51.81 Encounter for therapeutic drug level monitoring; R10.13 Epigastric pain | CPT/HCPCS: 80053; 83036; 83690; 83735; 85025 ==

== ENCOUNTER → 2024-07-10 10:58 | Outpatient (BNVA) | payer MEDICARE, OTHER, SELFPAY | PROVIDERS: PCP Family Medicine; Referring Provider Family Medicine; Visit Provider Surgery | DX: K21.9 Gastro-esophageal reflux disease without esophagitis (principal); R10.13 Epigastric pain | CPT/HCPCS: 99204 ==

== ENCOUNTER → 2024-08-01 13:14 | Outpatient (BNVA) | payer MEDICARE, OTHER, SELFPAY | PROVIDERS: PCP Family Medicine; Visit Provider Surgery | DX: R19.5 Other fecal abnormalities (principal); K21.9 Gastro-esophageal reflux disease without esophagitis; K22.70 Barrett's esophagus without dysplasia | CPT/HCPCS: 99213 ==

== ENCOUNTER 2024-08-23 07:01 | Day surgery (SDC) | payer MEDICARE, OTHER, SELFPAY ==
--- NOTE | 2024-08-23 07:04 | W.PM.OPSUD ---
Surgery/Procedure H&P Update DATE OF PROCEDURE: August 23, 2024 DATE H&P PERFORMED: 08/01/24 H&P UPDATE INFORMATION: I have reviewed H&P completed within last 30 days, I have examined patient prior to procedure, No changes to prior documentation, Changes to prior documentation as noted here and Risks and benefits of the procedure reviewed PLANNED PROCEDURE: Operation Date: 08/23/24 08:20 Proposed Procedures p EGD [id number] G0105 K21.9 R19.5(Not Applicable) - Austin Vasques MD s Colonoscopy(Not Applicable) - Austin Vasques MD
[2024-08-23 07:25] VITALS: BP 163/72; PULSE 89; RESP 17; TEMP 36.2; O2SAT 94; BMI 35.1
[2024-08-23 07:39] LABS: Glucose Point of Care 134 mg/dL (70-110)
--- NOTE | 2024-08-23 07:47 | ANES.PREANE2 ---
Pre-Anesthetic Assessment Height/Weight: Height 1.83 m Weight 117.48 kg Temp Pulse Resp BP Pulse Ox O2 Del Method 97.1 F L 89 17 163/72 94 Room Air 08/23/24 07:25 08/23/24 07:25 08/23/24 07:25 08/23/24 07:25 08/23/24 07:25 08/23/24 07:25 Preop Diagnosis: GERD, Positive cologuard Operation Date: 08/23/24 08:20 Proposed Procedures p EGD [id number] G0105 K21.9 R19.5(Not Applicable) - Austin Vasques MD s Colonoscopy(Not Applicable) - Austin Vasques MD Familial anesthetic complications: none Was Clonidine taken within 24 hours: N/A Last intake: Intake Last Liquid Date 08/23/24 Last Liquid Time 02:00 Last Solid Date 08/21/24 Last Solid Time 19:00 Social No alcohol and No tobacco Exam alert, oriented x 3, clear to auscultation bilaterally and regular rate & rhythm Airway Cervical ROM: within normal limits Mallampati: Class II Comments: Comments: missing teeth Pulmonary Sleep Apnea CV/HEM Atrial Fibrillation (flutter, resolved and maintained with cardizem, last dose 9pm), Coronary Artery Disease (stent to RCA, LAD), Hypertension and Myocardial Infarction CABG x2 2015, last echo in 2019 showed EF55% mild hypokinesis basal septum, pt. tolerates mild activity states cant do much do to lower extremity pain, last stress test unremarkable 2023. Had sedation last year without complications. None reported Hepatic None reported GI Gastroesophageal Reflux Disease Metabolic Diabetes Mellitus, Hyperlipidemia, Morbid Obesity and Thyroid Disease (hypothyroid) [facility] None reported Neuropsych Neuropathy Anesthetic Plan ASA status: 3 Anesthesia: MAC Risk of > 500 ml blood loss (7ml/kg in children): No Medications/Allergies Home Medications ?Medication ?Instructions ?Recorded ?Confirmed ?Last Taken ?Type nitroglycerin 0.4 mg sublingual 0.4 mg sublingual Q5M PRN Chest 10/25/19 08/23/24 Unknown History tablet (Nitrostat) Pain aspirin 325 mg tablet 325 mg PO DAILY 12/09/21 08/20/24 08/17/24 History insulin syringe-needle U-100 0.5 #360 ea 02/11/23 08/01/24 Unknown Rx mL 31 gauge x 5/16 (BD Insulin Syringe Ultra-Fine) cholecalciferol (vitamin D3) 25 5,000 unit PO .Twice a week 05/23/23 08/23/24 08/20/24 History mcg (1,000 unit) tablet coenzyme Q10 100 mg capsule 100 mg PO DAILY 05/23/23 08/23/24 08/22/24 History (CoQ-10) zinc gluconate 30 mg tablet 30 mg PO .Twice a week 05/23/23 08/23/24 08/19/24 History furosemide 20 mg tablet 20 mg PO DAILY PRN edema #30 tabs 09/06/23 08/23/24 09/13/23 08:00 Rx insulin glargine 100 unit/mL (3 44 unit SUBCUT DAILY 09/06/23 08/23/24 08/21/24 History mL) subcutaneous pen (Lantus Solostar U-100 Insulin) fvarmqkv-ein-egwxf 150 mcg-vit K1 1 tab PO DAILY 09/13/23 08/23/24 08/22/24 History 30 mcg-lycop 300 mcg-lutein tablet (Centrum Minis Men 50 Plus) levothyroxine 125 mcg tablet 125 mcg PO DAILY #90 tabs 09/21/23 08/23/24 08/22/24 Rx ondansetron 4 mg disintegrating 4 mg PO Q8H PRN nausea and vomiting 11/25/23 08/23/24 Unknown History tablet insulin regular human 100 unit/mL See Rx Instructions .Route 05/21/24 08/23/24 08/22/24 Rx injection solution (Novolin R .COMPLEX #70 mL Regular U-100 Insulin) Plavix 75 mg tablet (clopidogrel) 75 mg PO DAILY #90 tabs 06/25/24 08/23/24 08/17/24 Rx empagliflozin 25 mg tablet 25 mg PO DAILY #90 tabs 07/20/24 08/23/24 08/21/24 Rx atorvastatin 40 mg tablet 40 mg PO DAILY 08/20/24 08/23/24 08/22/24 History diltiazem HCl 180 mg 180 mg PO BEDTIME 08/20/24 08/23/24 08/22/24 History capsule,extended release 24 hr lisinopril 10 mg tablet 10 mg PO DAILY 08/20/24 08/23/24 08/22/24 History omeprazole 20 mg capsule,delayed 20 mg PO DAILY 08/20/24 08/23/24 08/22/24 History release potassium chloride 10 mEq 10 meq PO DAILY PRN Cramps 08/20/24 08/23/24 Unknown History tablet,extended release (Klor-Con) Allergies Allergy/AdvReac Type Severity Reaction Status Date / Time avocado Allergy ADR-Diarrhe Verified 08/23/24 07:19 a peanut Allergy Unknown Verified 08/23/24 07:19 [facility] Anesthesia Medical History History of kidney stones Hypothyroidism Type 2 diabetes mellitus Non-smoker Surgical History History of placement of stent in LAD coronary artery LAD, RCA - 2023 History of cataract surgery History of tonsillectomy S/P CABG x 2 [place] - 2015 Family History Father CAD (coronary artery disease) Other Arrhythmia Atrial fibrillation Denies family history of Anemia Aneurysm Congenital heart disease Cardiomyopathy Social History Smoking and tobacco/nicotine status: never used tobacco/nicotine Alcohol intake: current Alcohol intake frequency: 0-2 Drinks per Day Substance/Drug Use: never Marital status: / Marital status details: - Melia Hernández - 04/2023 Data Anesthesia Cardiac Studies: Echocardiogram Ultrasound 10/26/19 Sestamibi Stress Test (Cardiology) 08/30/23 Cardiac Event Monitor 09/08/23
[2024-08-23] MEDS: sodium chloride 0.9% 1,000 ML 15 ML IV (07:48)
[2024-08-23 08:38] VITALS: BP 123/55; PULSE 71; RESP 17; TEMP 36.2; O2SAT 97
[2024-08-23 09:00] VITALS: BP 125/54; PULSE 78; RESP 18; O2SAT 97
--- NOTE | 2024-08-23 09:25 | ANE.PACU2 ---
Inpatient post-anesthesia follow up: Airway intact: Yes Vital signs: Temperature 97.1 F Pulse Rate 78 Respiratory Rate 18 Blood Pressure 125/54 Pulse Oximetry 97 Oxygen Delivery Me thod Room Air Oxygen Flow Rate Fraction of Inspir ed Oxygen Hydration adequate: Yes Nausea and vomiting: No Pain level: 1 Mental status: Baseline
== END 2024-08-23 09:28 | disposition home or self-care (01) ==
PROVIDERS: PCP Family Medicine; Visit Provider Surgery
PROC: 0DJ08ZZ Inspection of Upper Intestinal Tract, Via Natural or Artificial Opening Endoscopic (ICD-10-PCS; principal; 2024-08-23 08:20)
PROC: 0DJD8ZZ Inspection of Lower Intestinal Tract, Via Natural or Artificial Opening Endoscopic (ICD-10-PCS; CPT 45378; 2024-08-23 08:20)
DX: Z12.11 Encounter for screening for malignant neoplasm of colon (principal); R19.5 Other fecal abnormalities; K22.70 Barrett's esophagus without dysplasia; K21.9 Gastro-esophageal reflux disease without esophagitis; I48.91 Unspecified atrial fibrillation; Z95.1 Presence of aortocoronary bypass graft; I25.10 Atherosclerotic heart disease of native coronary artery without angina pectoris; I10 Essential (primary) hypertension; E11.42 Type 2 diabetes mellitus with diabetic polyneuropathy; I25.2 Old myocardial infarction; E78.5 Hyperlipidemia, unspecified; E66.01 Morbid (severe) obesity due to excess calories; Z95.5 Presence of coronary angioplasty implant and graft; Z68.35 Body mass index [BMI] 35.0-35.9, adult; E03.9 Hypothyroidism, unspecified; Z79.899 Other long term (current) drug therapy; Z79.82 Long term (current) use of aspirin; Z79.4 Long term (current) use of insulin; Z79.890 Hormone replacement therapy; Z79.02 Long term (current) use of antithrombotics/antiplatelets
CPT/HCPCS: 36416; 43239; 82962; 88305; G0121; J2704; J3490; J7030

== ENCOUNTER → 2024-09-11 10:26 | Outpatient (BNVA) | payer MEDICARE, OTHER, SELFPAY | PROVIDERS: PCP Family Medicine; Visit Provider Surgery | DX: Z09 Encounter for follow-up examination after completed treatment for conditions other than malignant neoplasm (principal) | CPT/HCPCS: 99213 ==

== ENCOUNTER → 2024-10-02 10:45 | Outpatient (BNVA) | payer MEDICARE, OTHER, SELFPAY | PROVIDERS: PCP Family Medicine; Visit Provider Internal Medicine Cardiovascular Disease | DX: I25.10 Atherosclerotic heart disease of native coronary artery without angina pectoris (principal); E78.5 Hyperlipidemia, unspecified; I10 Essential (primary) hypertension; E11.9 Type 2 diabetes mellitus without complications; Z79.4 Long term (current) use of insulin; E03.8 Other specified hypothyroidism; Z79.02 Long term (current) use of antithrombotics/antiplatelets; Z79.82 Long term (current) use of aspirin; Z95.5 Presence of coronary angioplasty implant and graft; Z95.1 Presence of aortocoronary bypass graft | CPT/HCPCS: 99214 ==

== ENCOUNTER → 2025-04-03 10:19 | Outpatient (BNVA) | payer MEDICARE, OTHER, SELFPAY | PROVIDERS: PCP Family Medicine; Visit Provider Nurse Practitioner Family | DX: I25.10 Atherosclerotic heart disease of native coronary artery without angina pectoris (principal); I10 Essential (primary) hypertension; E03.9 Hypothyroidism, unspecified; E11.9 Type 2 diabetes mellitus without complications; E78.5 Hyperlipidemia, unspecified; I48.92 Unspecified atrial flutter; Z79.4 Long term (current) use of insulin | CPT/HCPCS: 99214 ==